=== PATIENT | male | born 1950 | race Caucasian/White ===

== ENCOUNTER → 2016-10-01 09:06 | Day surgery (SDC) | payer BC ==
--- NOTE | 2016-09-26 23:38 | HP ---
HISTORY AND PHYSICAL: DATE OF ADMISSION/OPERATION: 10/01/16 ADMITTING DIAGNOSES: 1. Gross hematuria. 2. Right renal calculi. PLANNED PROCEDURE: Right stent insertion and shock wave lithotripsy of right renal calculi. SURGEON: Dr. Suggs. ADMITTING HISTORY AND PHYSICAL: Arnold Valencia is a 65-year-old gentleman who was evaluated for a history of gross hematuria. He was noted to have a 1.5-cm calculus in the right kidney in the renal pelvis with additional renal calculi. PAST MEDICAL HISTORY: Significant for: 1. Hypertension. 2. Diabetes mellitus. 3. High cholesterol. 4. Chronic left lower extremity edema. PAST SURGICAL HISTORY: Significant for lower back surgery (details not available at the time of this dictation). MEDICATIONS: On admission: 1. Lipitor 40 mg daily. 2. Metformin 1000 mg b.i.d. 3. Zestoretic 12.5/20 one tablet daily. 4. Norvasc 5 mg daily. 5. Flomax 0.4 mg daily. 6. Valencia p.r.n. ALLERGIES: No known drug allergies. FAMILY HISTORY: Negative for stones. SMOKING HISTORY: He is a chronic smoker with a [id number] smoking history. PHYSICAL EXAMINATION GENERAL: Reveals a pleasant middle-aged gentleman. VITAL SIGNS: Blood pressure is 142/82, pulse 85 per minute, oxygen saturation 98% on room air, temperature 97.7. LUNGS: Clear bilaterally. CARDIOVASCULAR: Regular rate and rhythm. S1, S2. ABDOMEN: Soft without masses. There is mild right flank tenderness. IMPRESSION: A 65-year-old gentleman with a large calculus in the right ureteropelvic junction and additional right renal calculi. PLAN: Planned procedure is right stent insertion and shock wave lithotripsy of right renal calculi. I have discussed the procedure in detail with Mr. Valencia including possible risks of bleeding, infection, incomplete fragmentation, and possible injury to the kidney. He appears to understand and wishes to proceed as planned. CC: Dr. Schuler; Dr. Suggs* [id number]/[facility] #: [id number] [facility]
[~2016-10-01 09:06] MED LIST: Buffered Lidocaine 1% SYR 3ML* 3 ML/SYR SYRINGE INTRADERM ONE; Dexamethasone IV* 4 MG/ML 1 ML (4 MG) ONE; Famotidine IV* 10 MG/ML 2 ML (20 mg) IV ONE; Famotidine IV* 10 MG/ML 2 ML (20 mg) ONE; HYDROmorphone INJ* 1 MG/ML CARPUJECT SYRINGE IV PRN; Iohexol 180 (CONTRAST) 10 ML SDV IV ONE; KETAMINE HCL* 50 MG/ML 10 ML VIAL ONE; Ketorolac INJ* 30 MG/ML 1 ML VIAL ONE; Levalbuterol 0.63MG/3ML NEB INH PRN; Levalbuterol 1.25MG/0.5ML NEB ONE; Lidocaine 2% PF * 5 ML VIAL ONE; Metoclopramide TAB* 10 MG ONE; Metoclopramide TAB* 10 MG PO ONE; Midazolam* 1 MG/ML 5 ML VIAL (5 MG) ONE; Ondansetron INJ* 2 MG/ML VIAL IV PRN; Ondansetron INJ* 2 MG/ML VIAL ONE; Propofol* 10 MG/ML 20 ML BTL IV PUSH ONE; cefTRIAXone(*) 2 GM ADDV.VIAL IVPB ONE; fentaNYL* 50 MCG/ML 2 ML VIAL (100 MCG VIAL) IV PRN; fentaNYL* 50 MCG/ML 2 ML VIAL (100 MCG VIAL) ONE; oxyCODONE/Acetamin 5/325 MG* TAB PO PRN
--- NOTE | 2016-10-01 09:48 | RAD ---
Indication: Lithotripsy. Right renal calculus. Single view of the abdomen demonstrates multiple calcifications overlying the mid to lower pole of the right kidney. Likely calculi in the right renal pelvis measures up to 20 mm. IMPRESSION: Large calculi in the midportion of the right kidney with additional smaller calculi overlying the lower pole of the right kidney.
[2016-10-01 15:50] VITALS: BP 160/85
--- NOTE | 2016-10-01 17:14 | RAD ---
INDICATION: Postop status post right ureteral stent placement. COMPARISON: Comparison is made with a prior CT of the abdomen and pelvis from April 17, 2016 and a prior KUB series from October 01, 2016. TECHNIQUE: Frontal supine films of the abdomen were obtained. FINDINGS: The small bowel and colon appear nondistended. The patient is status post placement of a double-J stent catheter on the right side. There are multiple right renal calculi. The largest calculus measures 1.8 cm in diameter. IMPRESSION: MULTIPLE RIGHT RENAL CALCULI STATUS POST DOUBLE-J STENT CATHETER PLACEMENT
--- NOTE | 2016-10-02 07:50 | OP ---
DATE OF OPERATION: 10/01/16 [facility] DATE OF : 54 SURGEON: Sincere Suggs MD ANESTHESIOLOGIST: Dr. Hanna. ANESTHESIA: General. PRE-OP DIAGNOSIS: Right renal calculi. POST-OP DIAGNOSIS: Right renal calculi. OPERATIVE PROCEDURE: 1. Cystoscopy, right retrograde pyelogram, right stent insertion. 2. Shock wave lithotripsy of right renal calculus. INDICATIONS: Arnold Valencia is a 65-year-old gentleman who was evaluated and noted to have a fairly large 1.5-cm calculus in the right renal pelvis. In addition, he has smaller right renal calculi. Because of the large size of the calculus, I have explained to him that he may require multiple procedures before he can be rendered stone free and he is now being brought in for lithotripsy. I have also discussed the procedure of lithotripsy in detail including possible risks of bleeding, infection, incomplete fragmentation, and possible risk of injury to the kidney. COMPLICATIONS: None. STENT USED: 8-Latvian stent, right ureter. POSTOPERATIVE CONDITION: Stable. DESCRIPTION OF PROCEDURE: After induction of general anesthesia, the patient was placed in dorsal lithotomy position, sequential compression devices were in place and functioning. Initial cystoscopy revealed normal-appearing urethra, mild to moderately enlarged prostate. The bladder was examined. There were some small calcifications noted in the left lateral wall above the left orifice , but no evidence of any suspicious mucosal lesions noted. On the right side, a retrograde pyelogram was performed, which revealed a large filling defect in the renal pelvis with fullness of the collecting system and an 8-Latvian stent was positioned under fluoroscopy. Next, the patient was placed on the lithotripsy table in supine position. The large calculus in the right renal pelvis was identified on fluoroscopy and shock wave lithotripsy was commenced at a rate of 90 shocks per minute. Periodic imaging revealed good localization. A total of 300 shocks were administered and then temporary pause was instituted in an effort to minimize any potential trauma to the kidney. Lithotripsy was then resumed and a total of 2400 shocks were administered. The plan is to obtain an x-ray later on to assess for the degree of fragmentation and decide if any further procedures are needed. The patient tolerated the procedure satisfactorily and was transferred back to the recovery area in stable condition. [id number]/[facility] #: [id number] [facility]
== END | disposition home or self-care (01) ==
LOC: OR 09:06
PROVIDERS: ATTEND Urology
DX: N20.0 Calculus of kidney (principal); Z79.82 Long term (current) use of aspirin; I10 Essential (primary) hypertension; E11.9 Type 2 diabetes mellitus without complications; Z79.84 Long term (current) use of oral hypoglycemic drugs; R60.0 Localized edema; F17.210 Nicotine dependence, cigarettes, uncomplicated
CPT/HCPCS: 74000; A9270-GY; C1876; J0696; J1100; J1885; J2250; J2405; J2704; J3010

== ENCOUNTER 2016-11-12 07:13 | Day surgery (SDC) | payer BC ==
--- NOTE | 2016-10-25 08:06 | HP ---
ADMITTING HISTORY AND PHYSICAL: DATE OF ADMISSION: 11/12/16 ADMITTING DIAGNOSIS: Large multiple right renal calculi. PLANNED PROCEDURE: Shock wave lithotripsy, right renal calculi; possible right stent removal. SURGEON: Dr. Suggs. ADMITTING HISTORY AND PHYSICAL: Arnold Valencia is a 65-year-old gentleman, who had been evaluated and noted to have large multiple right-sided renal calculi. He had undergone right stent insertion and lithotripsy on 10/01/16 with partial fragmentation and is now being brought in for followup lithotripsy and possible stent removal. PAST MEDICAL HISTORY: Significant for: 1. Renal calculi. 2. Diabetes mellitus. 3. Hypertension. 4. High cholesterol. 5. Chronic left leg edema. MEDICATIONS ON ADMISSION: 1. Metformin 1000 mg b.i.d. 2. Lipitor 40 mg daily. 3. Norvasc 5 mg daily. 4. Flomax 0.4 mg daily. 5. Zestoretic 12.5/20 one tablet daily. ALLERGIES: No known drug allergies. PHYSICAL EXAMINATION GENERAL: Reveals a pleasant, overweight, middle-aged gentleman. VITAL SIGNS: Blood pressure is 150/92, pulse 89 per minute, oxygen saturation 96% on room air. LUNGS: Clear bilaterally. CARDIOVASCULAR: Regular rate and rhythm. S1 and S2. ABDOMEN: Soft with mild right flank tenderness. IMPRESSION AND PLAN: A 65-year-old gentleman with multiple large right renal calculi, who had undergone lithotripsy on October 01 with partial fragmentation and is now being brought in for shock wave lithotripsy, possible stent removal. CC: Dr. Schuler; Dr. Suggs* [id number]/[facility] #: [id number] [facility]
[~2016-11-12 07:13] MED LIST changes: -Buffered Lidocaine 1% SYR 3ML* 3 ML/SYR SYRINGE INTRADERM ONE; +Buffered Lidocaine 1% SYRIN* 3 ML/SYR SYRINGE INTRADERM ONE; -Dexamethasone IV* 4 MG/ML 1 ML (4 MG) ONE; -HYDROmorphone INJ* 1 MG/ML CARPUJECT SYRINGE IV PRN; -Iohexol 180 (CONTRAST) 10 ML SDV IV ONE; -KETAMINE HCL* 50 MG/ML 10 ML VIAL ONE; -Ketorolac INJ* 30 MG/ML 1 ML VIAL ONE; -Levalbuterol 0.63MG/3ML NEB INH PRN; -Levalbuterol 1.25MG/0.5ML NEB ONE; -Lidocaine 2% PF * 5 ML VIAL ONE; +Metoclopramide IV* 5 MG/ML 2 ML VIAL IV SLOW PU ONE; +Metoclopramide IV* 5 MG/ML 2 ML VIAL ONE; -Metoclopramide TAB* 10 MG ONE; -Metoclopramide TAB* 10 MG PO ONE; -Midazolam* 1 MG/ML 5 ML VIAL (5 MG) ONE; -Ondansetron INJ* 2 MG/ML VIAL IV PRN; -Ondansetron INJ* 2 MG/ML VIAL ONE; -Propofol* 10 MG/ML 20 ML BTL IV PUSH ONE; -fentaNYL* 50 MCG/ML 2 ML VIAL (100 MCG VIAL) IV PRN; -fentaNYL* 50 MCG/ML 2 ML VIAL (100 MCG VIAL) ONE; -oxyCODONE/Acetamin 5/325 MG* TAB PO PRN
--- NOTE | 2016-11-12 08:16 | RAD ---
HISTORY: Kidney stones, prior to lithotripsy COMPARISONS: October 01, 2016 VIEWS: Frontal views of the abdomen. FINDINGS: BOWEL: There is a nonspecific bowel gas pattern, with nondilated small bowel gas noted. CALCULI: There are multiple right renal calculi, measuring up to 1.1 cm in maximum dimension. A right ureteral stent is noted BONES AND SOFT TISSUES: Degenerative changes are noted OTHER FINDINGS: The lung bases are clear. There is no subphrenic gas. IMPRESSION: RIGHT NEPHROLITHIASIS WITH A RIGHT URETERAL STENT
[2016-11-12] MEDS ORDERED: Midazolam* 1 MG/ML 2 ML VIAL (2 MG) ONE (08:49)
[2016-11-12] MEDS ORDERED: fentaNYL* 50 MCG/ML 2 ML VIAL (100 MCG VIAL) ONE (08:49)
[2016-11-12] MEDS ORDERED: Furosemide IV* 10 MG/ML 2 ML VIAL (20 MG) ONE (09:37)
[2016-11-12] MEDS ORDERED: EPHEDrine (Pressors)* 50 MG/ML VIAL ONE (09:44)
[2016-11-12] MEDS ORDERED: Ondansetron INJ* 2 MG/ML VIAL ONE (09:47)
[2016-11-12] MEDS ORDERED: fentaNYL* 50 MCG/ML 2 ML VIAL (100 MCG VIAL) IV PRN (09:50)
[2016-11-12] MEDS ORDERED: DiMENhydriNATE IV* 50 MG/ML VIAL IV PUSH PRN (09:50)
[2016-11-12 11:01] VITALS: BP 115/63
--- NOTE | 2016-11-13 02:12 | OP ---
DATE OF OPERATION: 11/12/16 - [facility] DATE OF : [birth year] - AGE: 65 years, male. SURGEON: Sincere Suggs MD ANESTHESIOLOGIST: Dr. Munoz. ANESTHESIA: General. PRE-OP DIAGNOSIS: Right renal calculi. POST-OP DIAGNOSIS: Right renal calculi. OPERATIVE PROCEDURE: 1. Shockwave lithotripsy of right renal calculi. 2. Right stent removal. COMPLICATIONS: None. POSTOPERATIVE CONDITION: Stable. INDICATIONS: Arnold Valencia is a 65-year-old gentleman who had been evaluated for multiple large right right renal calculi. He had previously undergone stent insertion and lithotripsy with partial fragmentation and is now being brought in for followup lithotripsy. Because of the large size and number of the calculi, I have explained to him that he is at higher risk for need for multiple procedures including risk of obstructing ureteral fragments, which may require laser lithotripsy at a later date. DESCRIPTION OF THE PROCEDURE: After induction of general anesthesia, the patient was placed on the lithotripsy table in a supine position. There was a cluster of stones starting in the mid pole close to the proximal loop of the stent and extending down to the mid to lower pole area of the right kidney. Shockwave lithotripsy was commenced at a rate of 90 shocks per minute. After the initial 300 shocks, there was a pause in lithotripsy for several minutes in an effort to minimize any potential trauma to the kidney. There were several large stones and these were separately targeted sequentially with shockwaves and a total of 2400 shocks were used. Next, the patient was placed in dorsal lithotomy position. Cystoscopy was performed, the stent was seen exiting from the right ureter and was removed intact without difficulty. The bladder was emptied. The patient tolerated the procedure satisfactorily and was transferred back to the recovery area in stable condition. CC: Dr. Schuler; Dr. Suggs* [id number]/[facility] #: [id number] [facility]
== END 2016-11-12 11:24 | disposition home or self-care (01) ==
LOC: OR 07:13
PROVIDERS: ATTEND Urology
DX: N20.0 Calculus of kidney (principal); E11.8 Type 2 diabetes mellitus with unspecified complications; Z79.84 Long term (current) use of oral hypoglycemic drugs; I10 Essential (primary) hypertension; E78.00 Pure hypercholesterolemia, unspecified; R60.0 Localized edema
CPT/HCPCS: 74000; J0696; J1940; J2250; J2405; J3010

== ENCOUNTER 2017-01-10 17:38 | Inpatient (IN) | payer BC ==
[2017-01-10] MEDS ORDERED: Aspirin Low Dose CHEW TAB* 81 MG PO ONE (21:18)
[2017-01-10] MEDS ORDERED: NS 0.9% 1000 ML* 2,000 ML IV ONE (21:18)
[2017-01-10 21:31] LABS: Hematocrit 43 % (42-52); Hemoglobin 14.8 g/dl (14.0-18.0); Mean Corpuscular HGB Conc 35 g/dl (31-36); Mean Corpuscular Hemoglobin 30 pg (27-31); Mean Corpuscular Volume 88 fL (80-94); Mean Platelet Volume 9 um3 (7.4-10.4); Red Blood Count 4.88 10^6/ul (4.0-5.4); Red Cell Distribution Width 15 % (10.5-15); White Blood Count 15.3 10^3/ul (3.5-10.8)
[2017-01-10 21:44] LABS: Albumin 4.1 g/dL (3.2-5.2); BUN/Creatinine Ratio 33.3 (8-20); Calcium 12.2 mg/dL (8.6-10.3); EGFR African American 68.4 (>60); EGFR Non-African American 53.2 (>60); Globulin 3.1 g/dL (2-4); Phosphorus 2.8 mg/dL (2.5-5.0); Potassium 3.9 mmol/L (3.5-5.0); Total Bilirubin 0.6 mg/dL (0.2-1.0); Total Protein 7.2 g/dL (6.4-8.9)
[2017-01-10 21:47] LABS: Troponin I 1.31 ng/mL (<0.04)
[2017-01-10 21:57] LABS: Calcium (PTH Intact) 12.3 mg/dL (8.6-10.3); TSH (Thyroid Stimulating Horm) 4.42 mcIU/mL (0.34-5.60)
--- NOTE | 2017-01-10 22:12 | RAD ---
Indication: Chest pain. Single frontal view of the chest performed at 2200 hours was reviewed. No prior study is available. No mediastinal shift is noted. Heart is of normal size and configuration. Lung gilliam appear clear. IMPRESSION: NO ACTIVE CARDIOPULMONARY DISEASE IS NOTED.
--- NOTE | 2017-01-10 22:21 | HP ---
H&P (Free Text) History and Physical: PCP: Zuhair Schuler MD Date/Time of Evaluation: 01/10/2017 2220 CC: high calcium HPI: Mr Valencia is a 66YO obese male HX HTN, DM2, HLD, obesity, heavy smoking who began having severe non-radiating heartburn last Saturday, the , for which he was taking upwards of 15 TUMS/Rolaid daily which did relieve his symptoms. He was seen by his PCP who sanjuanita blood work finding his Ca++ to be 15 and recommended evaluation in [facility] [place] [place] ED. He did have a couple episodes of sweats, but denies SOB, palpitations, N/V, light-headedness, F/C, cough, congestion, or other issues. ED evaluation reveals his Ca++ to be down to 12, but his troponin is 1.3. ECG is benign. He is currently pain free & symptom free. PMedHx DM2 HTN HLD BPH OA Ambulatory Orders Tamsulosin CAP* [Flomax CAP*] 0.4 mg PO DAILY #30 cap 04/17/16 Amlodipine Besylate [Norvasc] 2.5 mg PO DAILY 09/24/16 Aspirin [Aspirin Adult Low Dose] 81 mg PO BEDTIME 09/24/16 Atorvastatin* [Lipitor*] 10 mg PO QPM 09/24/16 Glucosamine-Chondroitin [Glucosamine & Chondroitin 500-400 mg] 1 tab PO BID 01/05 Hydrocodone-Acetaminophen [Hydrocodone/Acetaminophen 10-325 mg] 2 - 4 tab PO Q6HR PRN 09/24/16 Ibuprofen TAB* [Motrin TAB* 800 MG] 800 mg PO Q6H PRN 09/24/16 Icosapent Ethyl [Vascepa] 2 gm PO BID 09/24/16 Lisinopril [Lisinopril 2.5 MG-] 2.5 mg PO DAILY 09/24/16 Metformin HCl [Glucophage] 1,000 mg PO BID 09/24/16 Multiple Vitamins W/ Minerals [Multivitamin Adults] 1 tab PO DAILY 09/24/16 Allergies No Known Allergies Allergy (Verified 11/12/16 07:42) SocHx: 1.5PPD cigarettes w/ ~50PYHX, no alcohol or recreational drugs; single, lives with girlfriend; full code status FamHx: positive for DM2, HTN, HLD ROS: as above, otherwise reviewed and all were negative Constitutional: NAD, normally developed, obese white male vitals: Vital Signs Temp 36.7 C 01/10/17 23:32 Pulse 75 01/10/17 23:32 Resp 20 01/10/17 23:32 BP 145/82 01/10/17 23:32 Pulse Ox 95 01/10/17 23:32 Intake & Output 01/10/17 01/10/17 01/11/17 11:59 23:59 11:59 Intake Total 1000 Balance 1000 Weight 109.225 kg Intake: IV Fluids 1000 HEENM: atraumatic; sclera/conjunctiva: non-icteric/mildly injected OU; hearing: clinically intact; oropharynx: clear, mucosa moist Neck: soft tissue: non-tender; thyroid: normal Pulmonary: diminished B w/ scant end-expiratory wheeze and prolonged expiratory phase, fair aeration, no accessory muscle use CV: RR/RR, normal S1S2, no carotid bruit, no jugular venous distention, 2+ B DP/ PT, no edema Abdominal: soft, non-distended, non-tender, no rebound/guarding/rigidity, normoactive bowel sounds, no hepatosplenomegaly or masses, no costovertebral angle tenderness Musculoskeletal: general: grossly intact; gait: stable Integumental: normal appearance and texture Psychiatric orientation: AA&O to PPS affect: calm mood: cooperative eye contact: good to fair content: reliable responses: timely insight: fair Testing: Lab Results 01/10/17 01/10/17 01/10/17 Range/Units 20:40 20:40 20:40 WBC 15.3 H (3.5-10.8) 10^3/ul RBC 4.88 (4.0-5.4) 10^6/ul Hgb 14.8 (14.0-18.0) g/dl Hct 43 (42-52) % MCV 88 (80-94) fL MCH 30 (27-31) pg MCHC 35 (31-36) g/dl RDW 15 (10.5-15) % Plt Count 270 (150-450) 10^3/ul MPV 9 (7.4-10.4) um3 Neut % (Auto) 68.3 (38-83) % Lymph % (Auto) 24.0 L (25-47) % Holt % (Auto) 7.2 (1-9) % Eos % (Auto) 0.2 (0-6) % Baso % (Auto) 0.3 (0-2) % Absolute Neuts (auto) 10.4 H (1.5-7.7) 10^3/ul Absolute Lymphs (auto) 3.7 (1.0-4.8) 10^3/ul Absolute Monos (auto) 1.1 H (0-0.8) 10^3/ul Absolute Eos (auto) 0 (0-0.6) 10^3/ul Absolute Basos (auto) 0.1 (0-0.2) 10^3/ul Absolute Nucleated RBC 0.01 10^3/ul Nucleated RBC % 0 INR (Anticoag Therapy) (0.89-1.11) Sodium 135 (133-145) mmol/L Potassium 3.9 (3.5-5.0) mmol/L Chloride 100 L (101-111) mmol/L Carbon Dioxide 27 (22-32) mmol/L Anion Gap 8 (2-11) mmol/L BUN 45 H (6-24) mg/dL Creatinine 1.35 H (0.67-1.17) mg/dL Est GFR ( Amer) 68.4 (>60) Est GFR (Non-Af Amer) 53.2 (>60) BUN/Creatinine Ratio 33.3 H (8-20) Glucose 114 H (70-100) mg/dL POC Glucose (mg/dL) (74-106) mg/dL Hemoglobin A1c (Less than 6.0) % Lactic Acid (0.5-2.0) mmol/L Calcium 12.2 H (8.6-10.3) mg/dL Phosphorus 2.8 (2.5-5.0) mg/dL Magnesium 1.0 L (1.9-2.7) mg/dL Total Bilirubin 0.60 (0.2-1.0) mg/dL AST 25 (13-39) U/L ALT 34 (7-52) U/L Alkaline Phosphatase 62 (34-104) U/L Total Creatine Kinase 77 (10-223) U/L CK-MB (CK-2) 6.7 H (0.6-6.3) ng/mL Troponin I 1.31 H* (<0.04) ng/mL B-Natriuretic Peptide ( - 100) pg/mL Total Protein 7.2 (6.4-8.9) g/dL Albumin 4.1 (3.2-5.2) g/dL Globulin 3.1 (2-4) g/dL Albumin/Globulin Ratio 1.3 (1-3) TSH 4.42 (0.34-5.60) mcIU/mL PTH Intact < 1.3 L (1.3-9.3) pmol/L Calcium (PTH Intact) 12.3 H (8.6-10.3) mg/dL 01/10/17 01/10/17 01/10/17 Range/Units 20:40 20:40 20:40 WBC (3.5-10.8) 10^3/ul RBC (4.0-5.4) 10^6/ul Hgb (14.0-18.0) g/dl Hct (42-52) % MCV (80-94) fL MCH (27-31) pg MCHC (31-36) g/dl RDW (10.5-15) % Plt Count (150-450) 10^3/ul MPV (7.4-10.4) um3 Neut % (Auto) (38-83) % Lymph % (Auto) (25-47) % Holt % (Auto) (1-9) % Eos % (Auto) (0-6) % Baso % (Auto) (0-2) % Absolute Neuts (auto) (1.5-7.7) 10^3/ul Absolute Lymphs (auto) (1.0-4.8) 10^3/ul Absolute Monos (auto) (0-0.8) 10^3/ul Absolute Eos (auto) (0-0.6) 10^3/ul Absolute Basos (auto) (0-0.2) 10^3/ul Absolute Nucleated RBC 10^3/ul Nucleated RBC % INR (Anticoag Therapy) 0.99 (0.89-1.11) Sodium (133-145) mmol/L Potassium (3.5-5.0) mmol/L Chloride (101-111) mmol/L Carbon Dioxide (22-32) mmol/L Anion Gap (2-11) mmol/L BUN (6-24) mg/dL Creatinine (0.67-1.17) mg/dL Est GFR ( Amer) (>60) Est GFR (Non-Af Amer) (>60) BUN/Creatinine Ratio (8-20) Glucose (70-100) mg/dL POC Glucose (mg/dL) (74-106) mg/dL Hemoglobin A1c (Less than 6.0) % Lactic Acid 1.8 (0.5-2.0) mmol/L Calcium (8.6-10.3) mg/dL Phosphorus (2.5-5.0) mg/dL Magnesium (1.9-2.7) mg/dL Total Bilirubin (0.2-1.0) mg/dL AST (13-39) U/L ALT (7-52) U/L Alkaline Phosphatase (34-104) U/L Total Creatine Kinase (10-223) U/L CK-MB (CK-2) (0.6-6.3) ng/mL Troponin I (<0.04) ng/mL B-Natriuretic Peptide 75 ( - 100) pg/mL Total Protein (6.4-8.9) g/dL Albumin (3.2-5.2) g/dL Globulin (2-4) g/dL Albumin/Globulin Ratio (1-3) TSH (0.34-5.60) mcIU/mL PTH Intact (1.3-9.3) pmol/L Calcium (PTH Intact) (8.6-10.3) mg/dL 01/10/17 01/10/17 01/11/17 Range/Units 20:40 23:27 00:15 WBC (3.5-10.8) 10^3/ul RBC (4.0-5.4) 10^6/ul Hgb (14.0-18.0) g/dl Hct (42-52) % MCV (80-94) fL MCH (27-31) pg MCHC (31-36) g/dl RDW (10.5-15) % Plt Count (150-450) 10^3/ul MPV (7.4-10.4) um3 Neut % (Auto) (38-83) % Lymph % (Auto) (25-47) % Holt % (Auto) (1-9) % Eos % (Auto) (0-6) % Baso % (Auto) (0-2) % Absolute Neuts (auto) (1.5-7.7) 10^3/ul Absolute Lymphs (auto) (1.0-4.8) 10^3/ul Absolute Monos (auto) (0-0.8) 10^3/ul Absolute Eos (auto) (0-0.6) 10^3/ul Absolute Basos (auto) (0-0.2) 10^3/ul Absolute Nucleated RBC 10^3/ul Nucleated RBC % INR (Anticoag Therapy) (0.89-1.11) Sodium (133-145) mmol/L Potassium (3.5-5.0) mmol/L Chloride (101-111) mmol/L Carbon Dioxide (22-32) mmol/L Anion Gap (2-11) mmol/L BUN (6-24) mg/dL Creatinine (0.67-1.17) mg/dL Est GFR ( Amer) (>60) Est GFR (Non-Af Amer) (>60) BUN/Creatinine Ratio (8-20) Glucose (70-100) mg/dL POC Glucose (mg/dL) 102 (74-106) mg/dL Hemoglobin A1c 6.9 H (Less than 6.0) % Lactic Acid (0.5-2.0) mmol/L Calcium (8.6-10.3) mg/dL Phosphorus (2.5-5.0) mg/dL Magnesium (1.9-2.7) mg/dL Total Bilirubin (0.2-1.0) mg/dL AST (13-39) U/L ALT (7-52) U/L Alkaline Phosphatase (34-104) U/L Total Creatine Kinase (10-223) U/L CK-MB (CK-2) (0.6-6.3) ng/mL Troponin I 1.72 H* (<0.04) ng/mL B-Natriuretic Peptide ( - 100) pg/mL Total Protein (6.4-8.9) g/dL Albumin (3.2-5.2) g/dL Globulin (2-4) g/dL Albumin/Globulin Ratio (1-3) TSH (0.34-5.60) mcIU/mL PTH Intact (1.3-9.3) pmol/L Calcium (PTH Intact) (8.6-10.3) mg/dL ECG, personally reviewed: NSR rate 86, no ischemia CXR, personally reviewed: IMPRESSION: NO ACTIVE CARDIOPULMONARY DISEASE IS NOTED. Impression: 66M presenting with subacute NSTEMI & hyperCalcemia 2nd accidental ingestion DIAGNOSIS & PLAN Primary NSTEMI : aspirin : metoprolol : supplemental oxygen : trend troponin : consider cardiology consult in AM : after arriving to floor, repeat troponin increased; start heparin GTT & repeat ECG : supportive care Secondary DM2 : A1c 6.9 : insulin carb ratio diet : basal/bolus/correctional insulin HTN : review meds once reconciled HLD : review meds once reconciled BPH : review meds once reconciled OA : review meds once reconciled Admission Rational: inpatient for subacute NSTEMI inappropriate for outpatient setting DVTp: heparin GTT Code Status: full
[2017-01-10] MEDS ORDERED: Albuterol 2.5 MG/3 ML NEB.SOL* (0.083%) INH PRN (22:25)
[2017-01-10] MEDS ORDERED: Acetaminophen TAB* 325 MG PO PRN (22:25)
[2017-01-10] MEDS ORDERED: CMCS: Melatonin (NF) 3 MG TAB PO PRN (22:26)
[2017-01-10] MEDS ORDERED: Nicotine Inhaler* 10 MG AMP INH PRN (22:26)
[2017-01-10] MEDS ORDERED: Ondansetron INJ* 2 MG/ML VIAL IV PRN (22:26)
[2017-01-10] MEDS ORDERED: Morphine INJ* 2 MG/ML 1 ML SYRINGE IV PRN (22:26)
[2017-01-10] MEDS ORDERED: traMADol TAB* 50 MG PO PRN (22:26)
--- NOTE | 2017-01-10 22:48 | ED ---
Rylan Berumen Thomas, scribed for Kristian Sage MD on 01/10/17 at 2038 . Complex/Multi-Sys Presentation - HPI Summary HPI Summary: The pt is a 66 y/o M referred to the ED from his PCP after a lab test showed that his Calcium was 15. The Calcium level was taken yesterday and the patient was contacted about his high Calcium this AM. He has not had an elevated calcium before. Additionally, the pt c/o CP, fatigue, weight loss, and L leg swelling. The patent's CP began 5 days ago and he "felt like he was having a heart attack". The patient reports that his pain was alleviated through Tums but would quickly return, and he took between 20 and 30 Tums since last Saturday. He claims that his CP was lessened in severity with mild exertion. He last had CP two days ago. The pt's L leg is swollen, sore, and red at night. His L leg soreness decreases at night. He states that this has been present for years.The patient denies palpitations, feeling hot or cold, abd pain. PMHx: kidney stones, DM, HLD. He denies FHx of CAD. The patient denies PMHx of CHF. The patient smokes 1.5 PPD. patient states that he stopped using alcohol 20 years ago. He has never had an GA, and he is not on home O2. 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 - History Of Current Complaint Chief Complaint: EDGeneral Hx Obtained From: Patient Onset/Duration: Sudden Onset - was informed of high Calcium level yesterday Alleviating Factor(s): Patient claims that Tums alleviated his CP Associated Signs And Symptoms: Positive: Chest Pain - began 5 days ago, resovled three days ago, Edema - L leg swelling, Other - POS: fatigue, weightloss, chronic shoulder pain, chronic knee pain; NEG: feeling hot or cold. Negative: Palpitations, Abdominal Pain - Allergies/Home Medications Allergies/Adverse Reactions: Allergies Allergy/AdvReac Type Severity Reaction Status Date / Time No Known Allergies Allergy Verified 11/12/16 07:42 PMH/Surg Hx/FS Hx/Imm Hx Previously Healthy: No Endocrine/Hematology History: Reports: Hx Diabetes - type II Cardiovascular History: Reports: Hx Hypertension - PT. 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 CYSTO, RIGHT LITHOTRIPSY, STENT INDERTION 09/2016 Hx Anesthesia Reactions: No Infectious Disease History: Denies: Traveled Outside the [place] in Last 30 Days - Family History Known Family History: Negative: Cardiac Disease, Hypertension, Diabetes - Social History Alcohol Use: None Hx Substance Use: No Substance Use Type: Reports: Prescribed Substance Use Comment - Amount & Last Used: FOR CHRONIC HIP PAIN, TAKES IN AM AND PM Hx Tobacco Use: Yes Smoking Status (MU): Heavy Every Day Tobacco Smoker Type: Cigarettes Amount Used/How Often: 1 PPD FOR 25 YRS Length of Time of Smoking/Using Tobacco: 25 YRS Have You Smoked in the Last Year: Yes Review of Systems Positive: Fatigue, Other - POS: weight loss, NEG: "feeling hot or cold" Positive: Chest Pain - began 5 days ago, resolved 3 days ago, pt claims that lessened in severity with Tums. Negative: Palpitations Negative: Abdominal Pain Positive: Arthralgia - chronic shoulder and knee pain, Edema - L leg, chronic All Other Systems Reviewed And Are Negative: Yes Physical Exam - Summary Physical Exam Summary: The patient is well-nourished in no acute distress and in no acute pain. The skin is warm and dry and skin color reflects adequate perfusion. Good skin turgor. HEENT: The head is normocephalic and atraumatic. The pupils are equal and reactive. The conjunctivae are clear and without drainage. Nares are patent and without drainage. Mouth reveals moist mucous membranes and the throat is without erythema and exudate. The external ears are intact. The ear canals are patent and without drainage. The tympanic membranes are intact. Neck is supple with full range of motion and non-tender. There are no carotid bruits. There is no neck vein distension. Thyroid is palpable and not enlarged. Respiratory: Chest is non-tender. Lungs show diffuse wheezing and rhonchi throughouth. Breath sounds are symmetrical and equal. Cardiovascular: Hear is regular rate and rhythm. There is no murmur or rub auscultated. There is no peripheral edema and pulses are symmetrical and equal. Good capillary refill Abdomen: The abdomen is obese, soft, and non-tender. There are normal bowel sounds heard in all four quadrants and there is no organomegaly palpated. Musculoskeletal: Motor weakness when the patient tries to sit up. There is no back pain noted. Extremities are non-tender with full range of motion. There is good capillary refill. There is no peripheral edema or calf tenderness elicited. Neurological: Patient is alert and oriented to person, place and time. The patient has symmetrical motor strength in all four extremities. Cranial nerves are grossly intact. Deep tendon reflexes are symmetrical and equal in all four extremities. Psychiatric: The patient has an appropriate affect and does not exhibit any anxiety or depression. Triage Information Reviewed: Yes Vital Signs On Initial Exam: Initial Vitals Temp Pulse Resp BP Pulse Ox 98.6 F 102 20 150/65 93 01/10/17 17:54 01/10/17 17:54 01/10/17 17:54 01/10/17 17:54 01/10/17 17:54 Vital Signs Reviewed: Yes Diagnostics - Vital Signs Vital Signs Temp Pulse Resp BP Pulse Ox 01/10/17 17:54 98.6 F 102 20 150/65 93 - Laboratory Lab Results: Lab Results 01/10/17 01/10/17 01/10/17 Range/Units 20:40 20:40 20:40 WBC 15.3 H (3.5-10.8) 10^3/ul RBC 4.88 (4.0-5.4) 10^6/ul Hgb 14.8 (14.0-18.0) g/dl Hct 43 (42-52) % MCV 88 (80-94) fL MCH 30 (27-31) pg MCHC 35 (31-36) g/dl RDW 15 (10.5-15) % Plt Count 270 (150-450) 10^3/ul MPV 9 (7.4-10.4) um3 Neut % (Auto) 68.3 (38-83) % Lymph % (Auto) 24.0 L (25-47) % [place] % (Auto) 7.2 (1-9) % Eos % (Auto) 0.2 (0-6) % Baso % (Auto) 0.3 (0-2) % Absolute Neuts (auto) 10.4 H (1.5-7.7) 10^3/ul Absolute Lymphs (auto) 3.7 (1.0-4.8) 10^3/ul Absolute Monos (auto) 1.1 H (0-0.8) 10^3/ul Absolute Eos (auto) 0 (0-0.6) 10^3/ul Absolute Basos (auto) 0.1 (0-0.2) 10^3/ul Absolute Nucleated RBC 0.01 10^3/ul Nucleated RBC % 0 INR (Anticoag Therapy) (0.89-1.11) Sodium 135 (133-145) mmol/L Potassium 3.9 (3.5-5.0) mmol/L Chloride 100 L (101-111) mmol/L Carbon Dioxide 27 (22-32) mmol/L Anion Gap 8 (2-11) mmol/L BUN 45 H (6-24) mg/dL Creatinine 1.35 H (0.67-1.17) mg/dL Est GFR ( Amer) 68.4 (>60) Est GFR (Non-Af Amer) 53.2 (>60) BUN/Creatinine Ratio 33.3 H (8-20) Glucose 114 H (70-100) mg/dL Lactic Acid (0.5-2.0) mmol/L Calcium 12.2 H (8.6-10.3) mg/dL Phosphorus 2.8 (2.5-5.0) mg/dL Magnesium 1.0 L (1.9-2.7) mg/dL Total Bilirubin 0.60 (0.2-1.0) mg/dL AST 25 (13-39) U/L ALT 34 (7-52) U/L Alkaline Phosphatase 62 (34-104) U/L Total Creatine Kinase 77 (10-223) U/L CK-MB (CK-2) Pending Troponin I 1.31 H* (<0.04) ng/mL B-Natriuretic Peptide ( - 100) pg/mL Total Protein 7.2 (6.4-8.9) g/dL Albumin 4.1 (3.2-5.2) g/dL Globulin 3.1 (2-4) g/dL Albumin/Globulin Ratio 1.3 (1-3) TSH 4.42 (0.34-5.60) mcIU/mL PTH Intact < 1.3 L (1.3-9.3) pmol/L Calcium (PTH Intact) 12.3 H (8.6-10.3) mg/dL 01/10/17 01/10/17 01/10/17 Range/Units 20:40 20:40 20:40 WBC (3.5-10.8) 10^3/ul RBC (4.0-5.4) 10^6/ul Hgb (14.0-18.0) g/dl Hct (42-52) % MCV (80-94) fL MCH (27-31) pg MCHC (31-36) g/dl RDW (10.5-15) % Plt Count (150-450) 10^3/ul MPV (7.4-10.4) um3 Neut % (Auto) (38-83) % Lymph % (Auto) (25-47) % Irion % (Auto) (1-9) % Eos % (Auto) (0-6) % Baso % (Auto) (0-2) % Absolute Neuts (auto) (1.5-7.7) 10^3/ul Absolute Lymphs (auto) (1.0-4.8) 10^3/ul Absolute Monos (auto) (0-0.8) 10^3/ul Absolute Eos (auto) (0-0.6) 10^3/ul Absolute Basos (auto) (0-0.2) 10^3/ul Absolute Nucleated RBC 10^3/ul Nucleated RBC % INR (Anticoag Therapy) 0.99 (0.89-1.11) Sodium (133-145) mmol/L Potassium (3.5-5.0) mmol/L Chloride (101-111) mmol/L Carbon Dioxide (22-32) mmol/L Anion Gap (2-11) mmol/L BUN (6-24) mg/dL Creatinine (0.67-1.17) mg/dL Est GFR ( Amer) (>60) Est GFR (Non-Af Amer) (>60) BUN/Creatinine Ratio (8-20) Glucose (70-100) mg/dL Lactic Acid 1.8 (0.5-2.0) mmol/L Calcium (8.6-10.3) mg/dL Phosphorus (2.5-5.0) mg/dL Magnesium (1.9-2.7) mg/dL Total Bilirubin (0.2-1.0) mg/dL AST (13-39) U/L ALT (7-52) U/L Alkaline Phosphatase (34-104) U/L Total Creatine Kinase (10-223) U/L CK-MB (CK-2) Troponin I (<0.04) ng/mL B-Natriuretic Peptide 75 ( - 100) pg/mL Total Protein (6.4-8.9) g/dL Albumin (3.2-5.2) g/dL Globulin (2-4) g/dL Albumin/Globulin Ratio (1-3) TSH (0.34-5.60) mcIU/mL PTH Intact (1.3-9.3) pmol/L Calcium (PTH Intact) (8.6-10.3) mg/dL Result Diagrams: 01/10/17 20:40 01/10/17 20:40 Lab Statement: Any lab studies that have been ordered have been reviewed, and results considered in the medical decision making process. - Radiology CXR Xray Interpretation: No Acute Changes - no active cardiopulmonary disease noted Radiology Interpretation Completed By: Radiologist - EKG 2119 Cardiac Rate: NL - 86 bpm EKG Rhythm: Sinus Rhythm EKG Interpretation: Normal axis, poor R wave progression, no evidence of GA Complex Multi-Symp Course/Dx Assessment/Plan: The pt is a 66 y/o M referred to the ED from his PCP after a lab test showed that his Calcium was 15. The Calcium level was taken yesterday and the patient was contacted about his high Calcium this AM. He has not had an elevated calcium before. Additionally, the pt c/o CP, fatigue, weight loss, and L leg swelling. The patent's CP began 5 days ago and he "felt like he was having a heart attack". The patient reports that his pain was alleviated through Tums but would quickly return, and he took between 20 and 30 Tums since last Saturday. He claims that his CP was lessened in severity with mild exertion. He last had CP two days ago. The pt's L leg is swollen, sore, and red at night. His L leg soreness decreases at night. He states that this has been present for years. The patient denies palpitations, feeling hot or cold, abd pain. PMHx: kidney stones, DM, HLD. He denies FHx of CAD. The patient denies PMHx of CHF. The patient smokes 1.5 PPD. patient states that he stopped using alcohol 20 years ago. He has never had an GA, and he is not on home O2. 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 CXR reveal no acute findings. EKG reveal no STEMI. Troponin is 1.31, BUN is 45, WBC is 15.3. Discussed care of pt with Dr. Chicas, who accepts pt for admission. He will be admitted with Dx of subacute NSTEMI, renal failure and hyperkalemia with 30 minutes of critical care time. He understands and agrees. - Diagnoses Provider Diagnoses: subacute NSTEMI, Renal failure, Hypercalcemia due to a drug Provider Diagnoses: (Ruled Out): Hyperkalemia - Physician Notifications Discussed Care Of Patient With: Jose Chicas Time Discussed With Above Provider: 22:30 Instructed by Provider To: Other - Accepts pt for admission. - Critical Care Time Critical Care Time: 30-74 min - 30 minutes Discharge - Discharge Plan Condition: Stable Disposition: ADMITTED TO [facility] Referrals: Neftaly Schuler MD [Primary Care Provider] - The documentation as recorded by the Rylan do Thomas accurately reflects the service I personally performed and the decisions made by , Kristian Sage MD.
[2017-01-10] MEDS: Insulin LISPRO* 1 UNITS UNIT SUBCUT SCH (23:33)
[2017-01-11] MEDS: NS 0.9% 1000 ML* 1,000 ML IV SCH ×3 (00:24→18:26)
[2017-01-11 00:50] LABS: Troponin I 1.72 ng/mL (<0.04)
[2017-01-11] MEDS: Mouth Piece, Nicotine* 1 EACH CARTRIDGE INH ONE ×2 (00:56→01:30)
[2017-01-11] MEDS: Metoprolol Tartrate TAB* 25 MG PO SCH ×2 (01:30→09:39)
[2017-01-11] MEDS: Heparin VIAL(*) 5000 UNITS/ML VIAL (FIVE THOUSAND) IV PRN ×3 (01:31→20:43)
[2017-01-11] MEDS: Heparin DRIP 25,000 UNITS(*) 25,000 UNITS/500 ML BAG IVPB SCH ×3 (01:31→22:15)
[2017-01-11] MEDS: Insulin LISPRO* 1 UNITS UNIT SUBCUT SCH ×6 (03:20→22:33)
[2017-01-11 04:04] LABS: Troponin I 1.41 ng/mL (<0.04)
[2017-01-11] MEDS ORDERED: Heparin VIAL(*) 5000 UNITS/ML VIAL (FIVE THOUSAND) SUBCUT SCH (06:00)
[2017-01-11] MEDS: Omeprazole CAP* 20 MG PO SCH (06:59)
[2017-01-11 07:02] LABS: Hematocrit 41 % (42-52); Hemoglobin 13.9 g/dl (14.0-18.0); Mean Corpuscular HGB Conc 34 g/dl (31-36); Mean Corpuscular Hemoglobin 30 pg (27-31); Mean Corpuscular Volume 89 fL (80-94); Mean Platelet Volume 8 um3 (7.4-10.4); Red Blood Count 4.59 10^6/ul (4.0-5.4); Red Cell Distribution Width 15 % (10.5-15)
[2017-01-11 07:17] LABS: BUN/Creatinine Ratio 35.1 (8-20); Calcium 10.3 mg/dL (8.6-10.3); EGFR African American 83.2 (>60); EGFR Non-African American 64.7 (>60); HDL Cholesterol 24.9 mg/dL; Potassium 3.6 mmol/L (3.5-5.0)
[2017-01-11] MEDS ORDERED: Perflutren Lipid Microsphere* 3 ML VIAL ONE (07:54)
[2017-01-11 08:43] LABS: Troponin I 1.71 ng/mL (<0.04)
--- NOTE | 2017-01-11 08:55 | ECHO ---
Patient: GIOVANNA CHACON [facility] Rec#: [id number] : 1950 Date: 01/11/2017 Age: 66y Height: 172.72 cm / 68.0 in Weight: 107.95 kg / 237.9 lbs Sex: M BSA: 2.2 Room#: [facility] Admit Date#: 01/10/2017 Type: Inpatient Referring: Jose Chicas MD Reading: Dean Hernandez MD Quarter Seamer: Farida Hamilton ANNETTA CC: Neftaly Schuler MD Transthoracic Echocardiogram Indication: NSTEMI BP: 115/60 HR: 76 Rhythm: NSR Findings History: DM,HTN,HLD,obesity,heavy smoker. Technical Comments: The study is technically limited due to patient body habitus. Completed at 0835. The study is technically limited due to the patient's smoking history. Left Ventricle: The left ventricular chamber size is normal. Mild to moderate concentric left ventricular hypertrophy is observed. There is normal left ventricular systolic function. The estimated ejection fraction is 60-65%. Abnormal left ventricular diastolic function is observed. Left Atrium: The left atrium is mildly dilated. Right Ventricle: The right ventricular cavity size is normal. The right ventricular global systolic function is normal. Right Atrium: The right atrial cavity size is normal. Aortic Valve: The aortic valve is trileaflet. There is no evidence of aortic regurgitation. There is no evidence of aortic stenosis. Mitral Valve: The mitral valve leaflets are mildly thickened. There is a trace of mitral regurgitation. Tricuspid Valve: The tricuspid valve leaflets are normal. There is no evidence of tricuspid valve regurgitation. Unable to estimate the right ventricular systolic pressure. There is no tricuspid stenosis. Pulmonic Valve: The pulmonic valve appears normal. There is no evidence of pulmonic regurgitation. There is no pulmonic stenosis. Pericardium: There is no significant pericardial effusion. A pericardial fat pad is visualized. Aorta: There is no dilatation of the ascending aorta. There is no dilatation of the aortic arch. There is no dilation of the aortic root. Pulmonary Artery: The main pulmonary artery is not well visualized. Venous: The inferior vena cava is dilated. There is a greater than 50% respiratory change in the inferior vena cava dimension. Contrast: Definity was used to optimize study. A total of 3ml was used. Intravenous contrast was used to enhance endocardial border definition. Conclusions There is normal left ventricular systolic function. The estimated ejection fraction is 60-65%. Mild to moderate concentric left ventricular hypertrophy is observed. The left ventricular chamber size is normal. Abnormal left ventricular diastolic function is observed. The left atrium is mildly dilated. Functionally benign heart valves. There is no prior echocardiogram available to compare with at this time. Measurements Name Value Normal Range RVIDd (AP) 2D 3.1 cm (0.9 - 2.6) RVDdMajor (2D) 4.1 cm (2.2 - 4.4) RAd ISD 4CH 4.9 cm (3.4 - 4.9) RA (A4C)W 4 cm (2.9 - 4.6) IVSd (2D) 1.4 cm (0.6 - 1) LVPWd (2D) 1.4 cm (0.6 - 1) LVIDd (2D) 4.2 cm (3.6 - 5.4) LVIDs (2D) 3 cm - LV FS (2D) 29 % (25 - 45) Aortic Annulus 2.4 cm (1.4 - 2.6) Ao root diameter (2D) 3.5 cm (2.1 - 3.5) Ascending Ao 3.3 cm (2.1 - 3.4) Aortic arch 2.7 cm (1.8 - 3.4) Descending Ao 0.6 cm - LA dimension (AP) 2D 4 cm (2.3 - 3.8) LAd ISD 4CH 5.8 cm (2.9 - 5.3) LA ISD 4CH W 3.7 cm (2.5 - 4.5) Name Value Normal Range LA ESV SP 4CH (A/L) 75 ml - LA ESV SP 2CH (A/L) 39 ml - LA ESV BP (A/L) 54 ml - LA ESV BP (A/L) index 24.7 ml/m2 - LA ESV SP 4CH (MOD) 71 ml - LA ESV SP 2CH (MOD) 37 ml - Name Value Normal Range MV E-wave Vmax 0.7 m/sec - MV deceleration time 171 msec - MV A-wave Vmax 0.57 m/sec - MV E:A ratio 1.19 ratio - LV septal e' Vmax 0.07 m/sec - LV lateral e' Vmax 0.1 m/sec - LV E:e' septal ratio 10 ratio - LV E:e' lateral ratio 7 ratio - Name Value Normal Range AV Vmax 1 m/sec - AV VTI 20.8 cm - AV peak gradient 4.09 mmHg - AV mean gradient 2.46 mmHg - LVOT Vmax 0.8 m/sec - LVOT VTI 15.3 cm - LVOT peak gradient 2.53 mmHg - LVOT mean gradient 1.15 mmHg - Name Value Normal Range IVC diameter 2.2 cm - Name Value Normal Range PV Vmax 0.8 m/sec - PV peak gradient 2.25 mmHg -
[2017-01-11] MEDS: Aspirin EC Low Dose* 81 MG TAB.EC PO SCH (09:40)
[2017-01-11] MEDS: Docusate CAP* 100 MG PO SCH ×2 (09:40→20:44)
--- NOTE | 2017-01-11 16:11 | PN ---
Subjective Date of Service: 01/11/17 Interval History: No chest pain, SOB, cough since admission. No new c/o. Objective Active Medications: Acetaminophen (Tylenol Tab*) 650 mg PO Q6H PRN PRN Reason: FEVER/PAIN Albuterol (Ventolin 2.5 Mg/3 Ml Neb.Isabella*) 2.5 mg INH Q2H PRN PRN Reason: SOB/WHEEZING Aspirin (Aspirin Ec Low Dose*) 81 mg PO DAILY [facility] Last Admin: 01/11/17 09:40 Dose: 81 mg Docusate Sodium (Colace Cap*) 200 mg PO BID [facility] Last Admin: 01/11/17 09:40 Dose: 200 mg Heparin Sodium (Porcine) (Heparin Vial(*)) 0 units IV .FOR BOLUSES PRN PRN Reason: HEPARIN DRIP BOLUSES Last Admin: 01/11/17 10:53 Dose: 3,300 units Sodium Chloride (Ns 0.9% 1000 Ml*) 1,000 mls @ 100 mls/hr IV PER RATE [facility] Last Admin: 01/11/17 10:56 Dose: 100 mls/hr Heparin Sodium/Dextrose (Heparin Drip 25,000 Units(*)) 25,000 units in 500 mls @ 0 mls/hr IVPB .(INITIAL RATE) [facility]; Per Protocol PRN Reason: Protocol Last Admin: 01/11/17 10:53 Dose: 23 mls/hr Insulin Glargine (Lantus(*)) 26 units SUBCUT 2100 [facility] Insulin Human Lispro (Humalog*) 0 units SUBCUT Q4H [facility] PRN Reason: Protocol Last Admin: 01/11/17 14:43 Dose: 3 units Metoprolol Tartrate (Lopressor Tab*) 25 mg PO BID [facility] Last Admin: 01/11/17 09:39 Dose: 25 mg Morphine Sulfate (Morphine Inj (Syringe)*) 2 mg IV Q4H PRN PRN Reason: PAIN - MILD Nicotine (Nicotine Inhaler*) 10 mg INH Q2H PRN PRN Reason: CRAVING Omeprazole (Prilosec Cap*) 20 mg PO DAILY@0600 [facility] Last Admin: 01/11/17 06:59 Dose: Not Given Ondansetron HCl (Zofran Inj*) 4 mg IV Q6H PRN PRN Reason: NAUSEA Tramadol HCl (Ultram*) 50 mg PO Q6H PRN PRN Reason: PAIN Vital Signs 01/10/17 01/10/17 01/10/17 22:27 22:31 22:49 Temperature 98 F Pulse Rate 76 82 82 Respiratory 16 19 16 Rate Blood Pressure 114/42 148/70 148/70 (mmHg) O2 Sat by Pulse 93 91 Oximetry 01/10/17 01/11/17 01/11/17 23:32 01:31 04:23 Temperature 98.0 F 98.4 F Pulse Rate 75 79 67 Respiratory 20 20 Rate Blood Pressure 145/82 139/45 115/60 (mmHg) O2 Sat by Pulse 95 90 Oximetry 01/11/17 01/11/17 01/11/17 08:20 11:34 15:08 Temperature 97.5 F 98.2 F 97.6 F Pulse Rate 69 65 65 Respiratory 16 18 20 Rate Blood Pressure 122/75 123/67 113/57 (mmHg) O2 Sat by Pulse 95 96 93 Oximetry Oxygen Devices in Use Now: Nasal Cannula Appearance: Alert, supine in bed. In good spirits. Looks comfortable. Eyes: No Scleral Icterus Neck: NL Appearance and Movements; NL JVP, No Thyroid Enlargement, Masses Respiratory: Symmetrical Chest Expansion and Respiratory Effort, Clear to Percussion - mild to mod wheezing all lung gilliam Cardiovascular: NL Sounds; No Murmurs; No JVD, RRR, No Edema, - Extremities: No Edema, No Clubbing, Cyanosis, - Skin: No Rash or Ulcers, No Nodules or Sclerosis, - Neurological: Alert and Oriented x 3, NL Sensation Result Diagrams: 01/11/17 06:30 01/11/17 06:33 Additional Lab and Data: Lab Results 01/10/17 01/10/17 01/10/17 Range/Units 20:40 20:40 20:40 WBC 15.3 H (3.5-10.8) 10^3/ul RBC 4.88 (4.0-5.4) 10^6/ul Hgb 14.8 (14.0-18.0) g/dl Hct 43 (42-52) % MCV 88 (80-94) fL MCH 30 (27-31) pg MCHC 35 (31-36) g/dl RDW 15 (10.5-15) % Plt Count 270 (150-450) 10^3/ul MPV 9 (7.4-10.4) um3 Neut % (Auto) 68.3 (38-83) % Lymph % (Auto) 24.0 L (25-47) % [place] % (Auto) 7.2 (1-9) % Eos % (Auto) 0.2 (0-6) % Baso % (Auto) 0.3 (0-2) % Absolute Neuts (auto) 10.4 H (1.5-7.7) 10^3/ul Absolute Lymphs (auto) 3.7 (1.0-4.8) 10^3/ul Absolute Monos (auto) 1.1 H (0-0.8) 10^3/ul Absolute Eos (auto) 0 (0-0.6) 10^3/ul Absolute Basos (auto) 0.1 (0-0.2) 10^3/ul Absolute Nucleated RBC 0.01 10^3/ul Nucleated RBC % 0 INR (Anticoag Therapy) (0.89-1.11) Sodium 135 (133-145) mmol/L Potassium 3.9 (3.5-5.0) mmol/L Chloride 100 L (101-111) mmol/L Carbon Dioxide 27 (22-32) mmol/L Anion Gap 8 (2-11) mmol/L BUN 45 H (6-24) mg/dL Creatinine 1.35 H (0.67-1.17) mg/dL Est GFR ( Amer) 68.4 (>60) Est GFR (Non-Af Amer) 53.2 (>60) BUN/Creatinine Ratio 33.3 H (8-20) Glucose 114 H (70-100) mg/dL Lactic Acid (0.5-2.0) mmol/L Calcium 12.2 H (8.6-10.3) mg/dL Phosphorus 2.8 (2.5-5.0) mg/dL Magnesium 1.0 L (1.9-2.7) mg/dL Total Bilirubin 0.60 (0.2-1.0) mg/dL AST 25 (13-39) U/L ALT 34 (7-52) U/L Alkaline Phosphatase 62 (34-104) U/L Total Creatine Kinase 77 (10-223) U/L CK-MB (CK-2) Pending Troponin I 1.31 H* (<0.04) ng/mL B-Natriuretic Peptide ( - 100) pg/mL Total Protein 7.2 (6.4-8.9) g/dL Albumin 4.1 (3.2-5.2) g/dL Globulin 3.1 (2-4) g/dL Albumin/Globulin Ratio 1.3 (1-3) TSH 4.42 (0.34-5.60) mcIU/mL PTH Intact < 1.3 L (1.3-9.3) pmol/L Calcium (PTH Intact) 12.3 H (8.6-10.3) mg/dL 01/10/17 01/10/17 01/10/17 Range/Units 20:40 20:40 20:40 WBC (3.5-10.8) 10^3/ul RBC (4.0-5.4) 10^6/ul Hgb (14.0-18.0) g/dl Hct (42-52) % MCV (80-94) fL MCH (27-31) pg MCHC (31-36) g/dl RDW (10.5-15) % Plt Count (150-450) 10^3/ul MPV (7.4-10.4) um3 Neut % (Auto) (38-83) % Lymph % (Auto) (25-47) % [place] % (Auto) (1-9) % Eos % (Auto) (0-6) % Baso % (Auto) (0-2) % Absolute Neuts (auto) (1.5-7.7) 10^3/ul Absolute Lymphs (auto) (1.0-4.8) 10^3/ul Absolute Monos (auto) (0-0.8) 10^3/ul Absolute Eos (auto) (0-0.6) 10^3/ul Absolute Basos (auto) (0-0.2) 10^3/ul Absolute Nucleated RBC 10^3/ul Nucleated RBC % INR (Anticoag Therapy) 0.99 (0.89-1.11) Sodium (133-145) mmol/L Potassium (3.5-5.0) mmol/L Chloride (101-111) mmol/L Carbon Dioxide (22-32) mmol/L Anion Gap (2-11) mmol/L BUN (6-24) mg/dL Creatinine (0.67-1.17) mg/dL Est GFR ( Amer) (>60) Est GFR (Non-Af Amer) (>60) BUN/Creatinine Ratio (8-20) Glucose (70-100) mg/dL Lactic Acid 1.8 (0.5-2.0) mmol/L Calcium (8.6-10.3) mg/dL Phosphorus (2.5-5.0) mg/dL Magnesium (1.9-2.7) mg/dL Total Bilirubin (0.2-1.0) mg/dL AST (13-39) U/L ALT (7-52) U/L Alkaline Phosphatase (34-104) U/L Total Creatine Kinase (10-223) U/L CK-MB (CK-2) Troponin I (<0.04) ng/mL B-Natriuretic Peptide 75 ( - 100) pg/mL Total Protein (6.4-8.9) g/dL Albumin (3.2-5.2) g/dL Globulin (2-4) g/dL Albumin/Globulin Ratio (1-3) TSH (0.34-5.60) mcIU/mL PTH Intact (1.3-9.3) pmol/L Calcium (PTH Intact) (8.6-10.3) mg/dL Assess/Plan/Problems-Billing Assessment: - Patient Problems (1) Elevated troponin Current Visit: Yes Status: Acute Code(s): R74.8 - ABNORMAL LEVELS OF OTHER SERUM ENZYMES SNOMED Code(s): 693312880 Comment: No injury seen on echo. CK MB minimally elevated. ECG no definite sign ischemia and/or infarction. Discussed with Dr. Rodriguez. Plan US legs, D- dimer, repeat labs in AM. Consider cardiac cath in near future if diagnosis still in doubt. Cannot do chemical stress test while he is wheezing. Start atorvastatin 80 mg q 1700 hrs 01/11. (2) Hypercalcemia Current Visit: Yes Status: Acute Code(s): E83.52 - HYPERCALCEMIA SNOMED Code(s): 75871802 Comment: Resolved, due to overus of Tums. (3) Tobacco abuse Current Visit: Yes Status: Acute Code(s): Z72.0 - TOBACCO USE SNOMED Code( s): 441968695 Comment: Pt advised to quit smoking and avoid second hand smoke. (4) Diabetes Current Visit: Yes Status: Acute Code(s): E11.9 - TYPE 2 DIABETES MELLITUS WITHOUT COMPLICATIONS SNOMED Code(s): 23281686 Comment: Metformin on hold. (5) HTN (hypertension) Current Visit: Yes Status: Acute Code(s): I10 - ESSENTIAL (PRIMARY) HYPERTENSION SNOMED Code(s): 79779377 Comment: Lisinopril on hold. (6) BPH (benign prostatic hyperplasia) Current Visit: Yes Status: Acute Code(s): N40.0 - BENIGN PROSTATIC HYPERPLASIA WITHOUT LOWER URINRY TRACT SYMP SNOMED Code(s): 262537639 Comment: Continue tamsulosin.
--- NOTE | 2017-01-11 16:52 | RAD ---
INDICATION: Pain and swelling. COMPARISON: September 06, 2010 TECHNIQUE: Duplex interrogation of the both lower extremities were performed. FINDINGS: Deep veins: The common femoral, great saphenous, profunda femoris, proximal, mid, and distal deep femoral, popliteal, posterior tibial, and peroneal veins are patent bilaterally. There is normal compressibility, augmentation, and phasic flow bilaterally. Superficial veins: There are no findings of superficial thrombophlebitis of either leg. Popliteal fossa: There is a 2.8 x 2.0 x 1.9 cm right-sided popliteal cyst. There is a left-sided popliteal cyst.. Soft tissues:There are no soft tissue abnormalities of either leg. IMPRESSION: No evidence of deep venous thrombosis of either leg. Right-sided popliteal cyst.
[2017-01-11] MEDS ORDERED: Atorvastatin* 80 MG TAB PO SCH (17:00)
--- NOTE | 2017-01-11 18:38 | CONS ---
CC: Dr. Neftaly Schuler * CARDIOLOGY CONSULTATION: DATE OF CONSULT: 01/11/2017 REASON FOR THE CONSULT: Abnormal troponin level with a remote history of chest discomfort, assess for possibility of cardiac etiology. HISTORY OF PRESENT ILLNESS: The patient is a 66-year-old gentleman with no prior known cardiac history. Specifically, he denies any history of myocardial infarction, congestive heart failure, or significant heart rhythm disturbance. He was in his usual state of health and last Saturday morning at 3 in the morning while he was lying on his left side, he started having a hurting, burning sensation like an ice pick in the right side of his chest. It would come and go, gets somewhat better, but never was completely relieved. This occurred all day long on Saturday. At 3 in the morning when he had it, he went back to sleep for an hour and woke up, it was still there, at 5:30 he did have it. He would pace around the house and he actually felt that pacing around the house made it feel better. He then laid back again on his right side and woke up and again had the symptoms. He also stated that he had sweating, but denied significant shortness of breath.Saturday, he continued having the symptoms and it would come and go. Specifically, it was not related to him doing any type of exertional activity, although he admits he does not do exertional activity. On Saturday, he went to where he worked and he told the woman who was there of the symptoms he was having as it was still present and she ran out and got aspirin and Tums. She had him chew a baby aspirin, but also took Tums and within 5 minutes he felt relief. It would come back again a couple of hours later and he would take Tums and it would get relieved again. This went on and off during Saturday. By Saturday, however, he did not notice any further episodes of this type of symptom. On Saturday around 5:15 a.m., he got up, went to the bathroom, he started coughing and leaned over to spit in the garbage can and he ended up throwing up a significant amount. All day Saturday, he felt lightheaded and dizzy. He did not go to work, but he had no further symptoms. At 12:30 p.m., he went to Dr. Schuler's office and blood tests were drawn. On , he did go to work and was feeling mildly dizzy with may be some shortness of breath and he got a phone call from Dr. Schuler's office and was instructed to go immediately to the hospital. He presented to [facility] yesterday. Reportedly, the patient was told by Dr. Schuler that his calcium level was 15, which is why he wanted him to go immediately to the hospital. Yesterday, on , his calcium level was found to be 12.2. His BUN and creatinine were 45 and 1.35. His initial troponin was 1.31. His total CPK was 77 and with an MB of 6.1. His SGOT was 25. His magnesium was 1.0. His B natriuretic peptide was 75. During the course of the hospitalization since then, repeat troponin went from 1.3 to 1.72, then to 1.41, then to 1.71. Of note, no other total CPKs or MBs were drawn and consult was called. Prior to my seeing him, I asked them to add on total CPKs and MBs to all of the abnormal troponins. Those total CPKs during the hospital course went from 77 to 76 to 65 to 63, all normal range. The MBs went from 6.7 to 7.6 to 6.2 and 6.1. Today, his BUN and creatinine were improved at 40 and 1.1 and his calcium was 10.3. His magnesium was not drawn today. His EKG from the emergency room, dated 01/10/17, time 2120 hours revealed a indeterminate axis, there was R greater than S in V1 suggesting the possibility of right ventricular hypertrophy. There was no reported acute ST or T-wave changes. Repeat EKG from 01/11/17, revealed similar findings. PAST MEDICAL HISTORY: Includes, a 20-year at least history of diabetes, 20- year history of hypertension, hyperlipidemia. He also has benign prostatic hypertrophy and osteoarthritis. CARDIAC RISK FACTORS: include hypertension, hyperlipidemia and diabetes in addition to a 1-1/2 pack a day smoking history for at least 30 years, obesity, sedentary lifestyle. HOME MEDICATIONS: Home medications were not documented for accuracy at this point in time, his pharmacy is [facility]. ALLERGIES: No known allergies. REVIEW OF SYSTEMS: As per the H and P. He does admits that he cannot walk well at all due to osteoarthritis. He does have shortness of breath at times but has never been diagnosed with asthma or COPD, but has a significant smoking history. He denies any known GI pathology.He denies any history of prior stroke or TIA. PHYSICAL EXAMINATION: When I see him reveals an obese gentleman in no acute distress. Neck is supple. There is no obvious increased JVP. Carotids with fair upstroke and volume. I cannot appreciate definitive transmitted murmur or bruits. Conjunctivae are pink. Sclerae clear. Mouth reveals moist mucosa. Lungs reveal no accessory muscle usage. There is diffuse wheeze noted throughout all lung gilliam. No active rhonchi noted. No active bowels. Heart reveals no visible heaves. No palpable heaves or thrills. Heart sounds are quite distant in nature. I do not appreciate significant systolic or diastolic murmur. However, I believe due to the increased chest size it is difficult in general to hear. Abdomen is obese, soft, nontender. I cannot assess accurately for organomegaly. Extremities are heavy in nature bilaterally, with mild-to- moderate non-pitting edema. Neuro: The patient alert, oriented with normal mentation. Musculoskeletal: The patient moves all extremities appropriate. Psychological: The patient with normal affect. LABORATORY DATA: Laboratory results today - as discussed above CBC findings revealed an initial white count of 15,000 with hemoglobin and hematocrit of 14.8 and 43. On repeat, white count 10,000; hemoglobin and hematocrit of 13.9 and 41, platelet count of 212. The current PTT is 45 as the patient was reportedly placed on heparin by the hospitalist. OVERALL ASSESSMENT: Arnold now presents with a very atypical story dating back, last Saturday with no recurrence of his chest discomforts over the past at least 3 days. The abnormality that we are now facing is a elevated troponin that is not in an up and down pattern, but in a fairly flat pattern and inconsistent in nature (1.3, 1.7, 1.4, 1.7). He has no elevation to his total CPK and his SGOT is not elevated as well. The EKG is nonspecific, but raises the question of right-sided findings or posterior infarct with the R-wave. At this point in time, he has already eating lunch when I see him at approximately 2:30 in the afternoon. I would clearly not take him emergently to the cardiovascular laboratory at this time given the fact that he just recently ate. I will discuss with the hospitalist to consideration of either doing a regadenoson stress test versus a definitive cardiac catheterization to look for the potential for underlying coronary artery disease. It would be ideal to know if there were other blood tests drawn by Dr. Schuler from a description of chest discomfort when he went to see him on Saturday, such that was a troponin drawn at that time too, but Dr. Schuler's office is not responding to our phone calls currently. Of note, there was some comment made in reviewing the emergency room physician's note about left lower extremity swelling over the course of past week or so, but I see no mention of the D-dimer or any consideration for whether or not the right-sided chest discomfort could have been related to a pulmonary embolus. His chest x-ray currently does not describe any infiltrative pattern that we might assume would occur if he did have a pulmonary embolism within for it. I will discuss all these possibilities with the hospitalist, who today involved with him is Dr. Jose Elizondo. [id number]/[facility] #: [id number] MEMO
[2017-01-11] MEDS: Insulin GLARGINE(*) 1 UNITS UNIT SUBCUT SCH (20:44)
[2017-01-11] MEDS: Tamsulosin CAP* 0.4 MG PO SCH (20:44)
[2017-01-12] MEDS: NS 0.9% 1000 ML* 1,000 ML IV SCH (00:15)
[2017-01-12] MEDS: Insulin LISPRO* 1 UNITS UNIT SUBCUT SCH ×5 (04:10→22:05)
[2017-01-12] MEDS: Omeprazole CAP* 20 MG PO SCH (06:42)
[2017-01-12] MEDS: Docusate CAP* 100 MG PO SCH ×2 (08:24→22:03)
[2017-01-12] MEDS: Aspirin EC Low Dose* 81 MG TAB.EC PO SCH (08:32)
[2017-01-12] MEDS ORDERED: Diltiazem CD CAP* 120 MG PO SCH (11:00)
[2017-01-12] MEDS: Enoxaparin(*) 100 MG/ML SYR SUBCUT SCH ×2 (11:10→22:07)
[2017-01-12 12:19] LABS: Troponin I 1.04 ng/mL (<0.04)
--- NOTE | 2017-01-12 14:53 | PN ---
Subjective Date of Service: 01/12/17 Interval History: No chest pain, cough, SOB. No new c/o. Objective Active Medications: Acetaminophen (Tylenol Tab*) 650 mg PO Q6H PRN PRN Reason: FEVER/PAIN Albuterol (Ventolin 2.5 Mg/3 Ml Neb.Isabella*) 2.5 mg INH Q2H PRN PRN Reason: SOB/WHEEZING Aspirin (Aspirin Ec Low Dose*) 81 mg PO DAILY [facility] Last Admin: 01/12/17 08:32 Dose: 81 mg Atorvastatin Calcium (Lipitor*) 20 mg PO 1700 [facility] Docusate Sodium (Colace Cap*) 200 mg PO BID [facility] Last Admin: 01/12/17 08:24 Dose: Not Given Enoxaparin Sodium (Lovenox(*)) 100 mg SUBCUT Q12H [facility] Stop: 01/13/17 23:30 Last Admin: 01/12/17 11:10 Dose: 100 mg Insulin Glargine (Lantus(*)) 26 units SUBCUT 2100 [facility] Last Admin: 01/11/17 20:44 Dose: 26 unit Insulin Human Lispro (Humalog*) 0 units SUBCUT ACHS [facility] PRN Reason: Protocol Last Admin: 01/12/17 11:10 Dose: 3 units Morphine Sulfate (Morphine Inj (Syringe)*) 2 mg IV Q4H PRN PRN Reason: PAIN - MILD Nicotine (Nicotine Inhaler*) 10 mg INH Q2H PRN PRN Reason: CRAVING Omeprazole (Prilosec Cap*) 20 mg PO DAILY@0600 [facility] Last Admin: 01/12/17 06:42 Dose: 20 mg Ondansetron HCl (Zofran Inj*) 4 mg IV Q6H PRN PRN Reason: NAUSEA Tamsulosin HCl (Flomax Cap*) 0.4 mg PO BEDTIME [facility] Last Admin: 01/11/17 20:44 Dose: 0.4 mg Tramadol HCl (Ultram*) 50 mg PO Q6H PRN PRN Reason: PAIN Vital Signs 01/11/17 01/11/17 01/11/17 15:08 19:50 20:00 Temperature 97.6 F 98.2 F Pulse Rate 65 75 Respiratory 20 24 20 Rate Blood Pressure 113/57 125/70 (mmHg) O2 Sat by Pulse 93 94 Oximetry 01/11/17 01/12/17 01/12/17 23:32 00:46 04:00 Temperature 97.9 F Pulse Rate 71 Respiratory 20 20 Rate Blood Pressure 134/50 130/69 (mmHg) O2 Sat by Pulse 93 92 Oximetry 01/12/17 01/12/17 01/12/17 04:05 07:25 08:00 Temperature 97.7 F 97.4 F Pulse Rate 65 66 Respiratory 16 20 16 Rate Blood Pressure 96/52 114/77 (mmHg) O2 Sat by Pulse 90 94 Oximetry 01/12/17 01/12/17 01/12/17 08:43 08:44 11:10 Temperature 98.0 F Pulse Rate 66 69 Respiratory 19 24 Rate Blood Pressure 127/67 (mmHg) O2 Sat by Pulse 94 94 94 Oximetry Oxygen Devices in Use Now: None Appearance: Alert, in a chair. In good spirits. Looks comfortable. Eyes: No Scleral Icterus Respiratory: Symmetrical Chest Expansion and Respiratory Effort, Clear to Auscultation, Clear to Percussion Cardiovascular: NL Sounds; No Murmurs; No JVD, RRR, No Edema, - Extremities: No Edema, No Clubbing, Cyanosis, - Skin: No Rash or Ulcers, No Nodules or Sclerosis, - Neurological: Alert and Oriented x 3, NL Sensation Result Diagrams: 01/11/17 06:30 01/11/17 06:33 Additional Lab and Data: Lab Results 01/10/17 01/10/17 01/10/17 Range/Units 20:40 20:40 20:40 WBC 15.3 H (3.5-10.8) 10^3/ul RBC 4.88 (4.0-5.4) 10^6/ul Hgb 14.8 (14.0-18.0) g/dl Hct 43 (42-52) % MCV 88 (80-94) fL MCH 30 (27-31) pg MCHC 35 (31-36) g/dl RDW 15 (10.5-15) % Plt Count 270 (150-450) 10^3/ul MPV 9 (7.4-10.4) um3 Neut % (Auto) 68.3 (38-83) % Lymph % (Auto) 24.0 L (25-47) % [place] % (Auto) 7.2 (1-9) % Eos % (Auto) 0.2 (0-6) % Baso % (Auto) 0.3 (0-2) % Absolute Neuts (auto) 10.4 H (1.5-7.7) 10^3/ul Absolute Lymphs (auto) 3.7 (1.0-4.8) 10^3/ul Absolute Monos (auto) 1.1 H (0-0.8) 10^3/ul Absolute Eos (auto) 0 (0-0.6) 10^3/ul Absolute Basos (auto) 0.1 (0-0.2) 10^3/ul Absolute Nucleated RBC 0.01 10^3/ul Nucleated RBC % 0 INR (Anticoag Therapy) (0.89-1.11) Sodium 135 (133-145) mmol/L Potassium 3.9 (3.5-5.0) mmol/L Chloride 100 L (101-111) mmol/L Carbon Dioxide 27 (22-32) mmol/L Anion Gap 8 (2-11) mmol/L BUN 45 H (6-24) mg/dL Creatinine 1.35 H (0.67-1.17) mg/dL Est GFR ( Amer) 68.4 (>60) Est GFR (Non-Af Amer) 53.2 (>60) BUN/Creatinine Ratio 33.3 H (8-20) Glucose 114 H (70-100) mg/dL Lactic Acid (0.5-2.0) mmol/L Calcium 12.2 H (8.6-10.3) mg/dL Phosphorus 2.8 (2.5-5.0) mg/dL Magnesium 1.0 L (1.9-2.7) mg/dL Total Bilirubin 0.60 (0.2-1.0) mg/dL AST 25 (13-39) U/L ALT 34 (7-52) U/L Alkaline Phosphatase 62 (34-104) U/L Total Creatine Kinase 77 (10-223) U/L CK-MB (CK-2) Pending Troponin I 1.31 H* (<0.04) ng/mL B-Natriuretic Peptide ( - 100) pg/mL Total Protein 7.2 (6.4-8.9) g/dL Albumin 4.1 (3.2-5.2) g/dL Globulin 3.1 (2-4) g/dL Albumin/Globulin Ratio 1.3 (1-3) TSH 4.42 (0.34-5.60) mcIU/mL PTH Intact < 1.3 L (1.3-9.3) pmol/L Calcium (PTH Intact) 12.3 H (8.6-10.3) mg/dL 01/10/17 01/10/17 01/10/17 Range/Units 20:40 20:40 20:40 WBC (3.5-10.8) 10^3/ul RBC (4.0-5.4) 10^6/ul Hgb (14.0-18.0) g/dl Hct (42-52) % MCV (80-94) fL MCH (27-31) pg MCHC (31-36) g/dl RDW (10.5-15) % Plt Count (150-450) 10^3/ul MPV (7.4-10.4) um3 Neut % (Auto) (38-83) % Lymph % (Auto) (25-47) % Linn % (Auto) (1-9) % Eos % (Auto) (0-6) % Baso % (Auto) (0-2) % Absolute Neuts (auto) (1.5-7.7) 10^3/ul Absolute Lymphs (auto) (1.0-4.8) 10^3/ul Absolute Monos (auto) (0-0.8) 10^3/ul Absolute Eos (auto) (0-0.6) 10^3/ul Absolute Basos (auto) (0-0.2) 10^3/ul Absolute Nucleated RBC 10^3/ul Nucleated RBC % INR (Anticoag Therapy) 0.99 (0.89-1.11) Sodium (133-145) mmol/L Potassium (3.5-5.0) mmol/L Chloride (101-111) mmol/L Carbon Dioxide (22-32) mmol/L Anion Gap (2-11) mmol/L BUN (6-24) mg/dL Creatinine (0.67-1.17) mg/dL Est GFR ( Amer) (>60) Est GFR (Non-Af Amer) (>60) BUN/Creatinine Ratio (8-20) Glucose (70-100) mg/dL Lactic Acid 1.8 (0.5-2.0) mmol/L Calcium (8.6-10.3) mg/dL Phosphorus (2.5-5.0) mg/dL Magnesium (1.9-2.7) mg/dL Total Bilirubin (0.2-1.0) mg/dL AST (13-39) U/L ALT (7-52) U/L Alkaline Phosphatase (34-104) U/L Total Creatine Kinase (10-223) U/L CK-MB (CK-2) Troponin I (<0.04) ng/mL B-Natriuretic Peptide 75 ( - 100) pg/mL Total Protein (6.4-8.9) g/dL Albumin (3.2-5.2) g/dL Globulin (2-4) g/dL Albumin/Globulin Ratio (1-3) TSH (0.34-5.60) mcIU/mL PTH Intact (1.3-9.3) pmol/L Calcium (PTH Intact) (8.6-10.3) mg/dL Assess/Plan/Problems-Billing Assessment: - Patient Problems (1) Elevated troponin Current Visit: Yes Status: Acute Code(s): R74.8 - ABNORMAL LEVELS OF OTHER SERUM ENZYMES SNOMED Code(s): 395688532 Comment: Troponin down to 1.04 on 01/12. Discussed with Dr. Rodriguez. US legs , D-dimer both neg. Consider cardiac cath 01/14. Atorvastatin reduced to 20 mg due to LDL of 31. Short run of 2:1 heart block, could be Wenckebach. Hold chronotropic meds, consider amlodipine if systolic BP > 120 consistently. (2) Hypercalcemia Current Visit: Yes Status: Acute Code(s): E83.52 - HYPERCALCEMIA SNOMED Code(s): 86052998 Comment: Resolved, due to overus of Tums. (3) Tobacco abuse Current Visit: Yes Status: Acute Code(s): Z72.0 - TOBACCO USE SNOMED Code( s): 799121629 Comment: Pt advised to quit smoking and avoid second hand smoke. (4) Diabetes Current Visit: Yes Status: Acute Code(s): E11.9 - TYPE 2 DIABETES MELLITUS WITHOUT COMPLICATIONS SNOMED Code(s): 15102586 Comment: Metformin on hold. FS glucose 112-171 range as of 01/12. (5) HTN (hypertension) Current Visit: Yes Status: Acute Code(s): I10 - ESSENTIAL (PRIMARY) HYPERTENSION SNOMED Code(s): 08990052 Comment: Lisinopril on hold. (6) BPH (benign prostatic hyperplasia) Current Visit: Yes Status: Acute Code(s): N40.0 - BENIGN PROSTATIC HYPERPLASIA WITHOUT LOWER URINRY TRACT SYMP SNOMED Code(s): 571975139 Comment: Continue tamsulosin.
[2017-01-12] MEDS: Atorvastatin* 20 MG TAB PO SCH (17:12)
[2017-01-12] MEDS: Tamsulosin CAP* 0.4 MG PO SCH (22:03)
[2017-01-12] MEDS: Insulin GLARGINE(*) 1 UNITS UNIT SUBCUT SCH (22:06)
--- NOTE | 2017-01-13 03:47 | PN ---
Progress Note - Progress Note Date of Service: 01/13/17 Note: Nursing called reporting possible 2nd degree AV Mobitz II. Upon review of printed telemetry strip, the rhythm appears to change from a standard Mobitz I to a 2:1 block for a few seconds and then back to a more typical Mobitz I. While 2:1 blocks could be either Mobitz I or II, it is more likely this is a variable block in Mobitz I. However, to err on the side of caution we will place external pacer pads on the patient and move the generator to outside his room.
[2017-01-13 05:30] LABS: Hematocrit 39 % (42-52); Hemoglobin 13.6 g/dl (14.0-18.0); Mean Corpuscular HGB Conc 35 g/dl (31-36); Mean Corpuscular Hemoglobin 31 pg (27-31); Mean Corpuscular Volume 88 fL (80-94); Mean Platelet Volume 8 um3 (7.4-10.4); Red Blood Count 4.45 10^6/ul (4.0-5.4); Red Cell Distribution Width 14 % (10.5-15); White Blood Count 6.2 10^3/ul (3.5-10.8)
[2017-01-13 05:50] LABS: BUN/Creatinine Ratio 28.1 (8-20); Calcium 9.3 mg/dL (8.6-10.3); EGFR African American 101.4 (>60); EGFR Non-African American 78.9 (>60); Potassium 3.6 mmol/L (3.5-5.0)
[2017-01-13] MEDS: Omeprazole CAP* 20 MG PO SCH (06:11)
[2017-01-13] MEDS: Aspirin EC Low Dose* 81 MG TAB.EC PO SCH (08:03)
[2017-01-13] MEDS: Insulin LISPRO* 1 UNITS UNIT SUBCUT SCH ×4 (08:04→21:27)
[2017-01-13] MEDS: Docusate CAP* 100 MG PO SCH ×2 (08:05→21:26)
[2017-01-13] MEDS: Enoxaparin(*) 100 MG/ML SYR SUBCUT SCH ×2 (11:12→21:28)
--- NOTE | 2017-01-13 15:18 | PN ---
Subjective Date of Service: 01/13/17 Interval History: No chest pain, cough, SOB No new c/o. Objective Active Medications: Acetaminophen (Tylenol Tab*) 650 mg PO Q6H PRN PRN Reason: FEVER/PAIN Albuterol (Ventolin 2.5 Mg/3 Ml Neb.Isabella*) 2.5 mg INH Q2H PRN PRN Reason: SOB/WHEEZING Aspirin (Aspirin Ec Low Dose*) [address] [facility] Last Admin: 01/13/17 08:03 Dose: 81 mg Atorvastatin Calcium (Lipitor*) [address] [facility] Last Admin: 01/12/17 17:12 Dose: 20 mg Docusate Sodium (Colace Cap*) [address] [facility] Last Admin: 01/13/17 08:05 Dose: Not Given Enoxaparin Sodium (Lovenox(*)) [address] [facility] Stop: 01/13/17 23:30 Last Admin: 01/13/17 11:12 Dose: 100 mg Sodium Chloride (Ns 0.9% 1000 Ml*) 1,000 mls @ 100 mls/hr IV .per rate [facility] Insulin Glargine (Lantus(*)) [address] [facility] Last Admin: 01/12/17 22:06 Dose: 26 unit Insulin Human Lispro (Humalog*) [address] [facility] PRN Reason: Protocol Last Admin: 01/13/17 11:12 Dose: 6 units Morphine Sulfate (Morphine Inj (Syringe)*) 2 mg IV Q4H PRN PRN Reason: PAIN - MILD Nicotine (Nicotine Inhaler*) 10 mg INH Q2H PRN PRN Reason: CRAVING Omeprazole (Prilosec Cap*) 20 mg PO DAILY@0600 [facility] Last Admin: 01/13/17 06:11 Dose: 20 mg Ondansetron HCl (Zofran Inj*) 4 mg IV Q6H PRN PRN Reason: NAUSEA Tamsulosin HCl (Flomax Cap*) 0.[address] [facility] Last Admin: 01/12/17 22:03 Dose: Not Given Tramadol HCl (Ultram*) 50 mg PO Q6H PRN PRN Reason: PAIN Vital Signs 01/12/17 01/12/17 01/12/17 19:18 20:00 23:45 Temperature 99.0 F 97.6 F Pulse Rate 76 70 Respiratory 16 18 16 Rate Blood Pressure 127/61 123/55 (mmHg) O2 Sat by Pulse 96 92 Oximetry 01/13/17 01/13/17 01/13/17 00:00 03:18 06:55 Temperature 97.9 F Pulse Rate 66 Respiratory 18 16 Rate Blood Pressure 133/74 (mmHg) O2 Sat by Pulse 92 94 Oximetry 01/13/17 01/13/17 01/13/17 07:19 09:01 09:02 Temperature 98.0 F Pulse Rate 75 75 Respiratory 20 18 Rate Blood Pressure 126/74 (mmHg) O2 Sat by Pulse 96 98 97 Oximetry 01/13/17 11:07 Temperature 98.0 F Pulse Rate 77 Respiratory 24 Rate Blood Pressure 146/65 (mmHg) O2 Sat by Pulse 94 Oximetry Oxygen Devices in Use Now: None Appearance: Alert, in a chair. In good spirits. Looks comfortable. Eyes: No Scleral Icterus Neck: NL Appearance and Movements; NL JVP, No Thyroid Enlargement, Masses Respiratory: Symmetrical Chest Expansion and Respiratory Effort, Clear to Auscultation, Clear to Percussion Cardiovascular: NL Sounds; No Murmurs; No JVD, RRR, No Edema, - Extremities: No Edema, No Clubbing, Cyanosis, - Skin: No Rash or Ulcers, No Nodules or Sclerosis, - Neurological: Alert and Oriented x 3, NL Sensation Result Diagrams: 01/13/17 04:33 01/13/17 04:33 Additional Lab and Data: Lab Results 01/10/17 01/10/17 01/10/17 Range/Units 20:40 20:40 20:40 WBC 15.3 H (3.5-10.8) 10^3/ul RBC 4.88 (4.0-5.4) 10^6/ul Hgb 14.8 (14.0-18.0) g/dl Hct 43 (42-52) % MCV 88 (80-94) fL MCH 30 (27-31) pg MCHC 35 (31-36) g/dl RDW 15 (10.5-15) % Plt Count 270 (150-450) 10^3/ul MPV 9 (7.4-10.4) um3 Neut % (Auto) 68.3 (38-83) % Lymph % (Auto) 24.0 L (25-47) % [place] % (Auto) 7.2 (1-9) % Eos % (Auto) 0.2 (0-6) % Baso % (Auto) 0.3 (0-2) % Absolute Neuts (auto) 10.4 H (1.5-7.7) 10^3/ul Absolute Lymphs (auto) 3.7 (1.0-4.8) 10^3/ul Absolute Monos (auto) 1.1 H (0-0.8) 10^3/ul Absolute Eos (auto) 0 (0-0.6) 10^3/ul Absolute Basos (auto) 0.1 (0-0.2) 10^3/ul Absolute Nucleated RBC 0.01 10^3/ul Nucleated RBC % 0 INR (Anticoag Therapy) (0.89-1.11) Sodium 135 (133-145) mmol/L Potassium 3.9 (3.5-5.0) mmol/L Chloride 100 L (101-111) mmol/L Carbon Dioxide 27 (22-32) mmol/L Anion Gap 8 (2-11) mmol/L BUN 45 H (6-24) mg/dL Creatinine 1.35 H (0.67-1.17) mg/dL Est GFR ( Amer) 68.4 (>60) Est GFR (Non-Af Amer) 53.2 (>60) BUN/Creatinine Ratio 33.3 H (8-20) Glucose 114 H (70-100) mg/dL Lactic Acid (0.5-2.0) mmol/L Calcium 12.2 H (8.6-10.3) mg/dL Phosphorus 2.8 (2.5-5.0) mg/dL Magnesium 1.0 L (1.9-2.7) mg/dL Total Bilirubin 0.60 (0.2-1.0) mg/dL AST 25 (13-39) U/L ALT 34 (7-52) U/L Alkaline Phosphatase 62 (34-104) U/L Total Creatine Kinase 77 (10-223) U/L CK-MB (CK-2) Pending Troponin I 1.31 H* (<0.04) ng/mL B-Natriuretic Peptide ( - 100) pg/mL Total Protein 7.2 (6.4-8.9) g/dL Albumin 4.1 (3.2-5.2) g/dL Globulin 3.1 (2-4) g/dL Albumin/Globulin Ratio 1.3 (1-3) TSH 4.42 (0.34-5.60) mcIU/mL PTH Intact < 1.3 L (1.3-9.3) pmol/L Calcium (PTH Intact) 12.3 H (8.6-10.3) mg/dL 01/10/17 01/10/17 01/10/17 Range/Units 20:40 20:40 20:40 WBC (3.5-10.8) 10^3/ul RBC (4.0-5.4) 10^6/ul Hgb (14.0-18.0) g/dl Hct (42-52) % MCV (80-94) fL MCH (27-31) pg MCHC (31-36) g/dl RDW (10.5-15) % Plt Count (150-450) 10^3/ul MPV (7.4-10.4) um3 Neut % (Auto) (38-83) % Lymph % (Auto) (25-47) % [place] % (Auto) (1-9) % Eos % (Auto) (0-6) % Baso % (Auto) (0-2) % Absolute Neuts (auto) (1.5-7.7) 10^3/ul Absolute Lymphs (auto) (1.0-4.8) 10^3/ul Absolute Monos (auto) (0-0.8) 10^3/ul Absolute Eos (auto) (0-0.6) 10^3/ul Absolute Basos (auto) (0-0.2) 10^3/ul Absolute Nucleated RBC 10^3/ul Nucleated RBC % INR (Anticoag Therapy) 0.99 (0.89-1.11) Sodium (133-145) mmol/L Potassium (3.5-5.0) mmol/L Chloride (101-111) mmol/L Carbon Dioxide (22-32) mmol/L Anion Gap (2-11) mmol/L BUN (6-24) mg/dL Creatinine (0.67-1.17) mg/dL Est GFR ( Amer) (>60) Est GFR (Non-Af Amer) (>60) BUN/Creatinine Ratio (8-20) Glucose (70-100) mg/dL Lactic Acid 1.8 (0.5-2.0) mmol/L Calcium (8.6-10.3) mg/dL Phosphorus (2.5-5.0) mg/dL Magnesium (1.9-2.7) mg/dL Total Bilirubin (0.2-1.0) mg/dL AST (13-39) U/L ALT (7-52) U/L Alkaline Phosphatase (34-104) U/L Total Creatine Kinase (10-223) U/L CK-MB (CK-2) Troponin I (<0.04) ng/mL B-Natriuretic Peptide 75 ( - 100) pg/mL Total Protein (6.4-8.9) g/dL Albumin (3.2-5.2) g/dL Globulin (2-4) g/dL Albumin/Globulin Ratio (1-3) TSH (0.34-5.60) mcIU/mL PTH Intact (1.3-9.3) pmol/L Calcium (PTH Intact) (8.6-10.3) mg/dL Assess/Plan/Problems-Billing Assessment: - Patient Problems (1) Elevated troponin Current Visit: Yes Status: Acute Code(s): R74.8 - ABNORMAL LEVELS OF OTHER SERUM ENZYMES SNOMED Code(s): 553481303 Comment: Troponin down to 1.04 on 01/12. Discussed with Dr. Rodriguez. US legs , D-dimer both neg. Cardiac cath 01/14. Atorvastatin reduced to 20 mg due to LDL of 31. Occ short periods hear block with pauses up to 2.2 sec (?3.6 sec) while sleeping. OVernight oximetry showed periods of desat under 89%. Hold chronotropic meds, consider amlodipine if systolic BP > 120 consistently. Consider outpt Holter and sleep lab eval. (2) Hypercalcemia Current Visit: Yes Status: Acute Code(s): E83.52 - HYPERCALCEMIA SNOMED Code(s): 94193365 Comment: Resolved, due to overus of Tums. (3) Tobacco abuse Current Visit: Yes Status: Acute Code(s): Z72.0 - TOBACCO USE SNOMED Code( s): 776216485 Comment: Pt advised to quit smoking and avoid second hand smoke. (4) Diabetes Current Visit: Yes Status: Acute Code(s): E11.9 - TYPE 2 DIABETES MELLITUS WITHOUT COMPLICATIONS SNOMED Code(s): 68862168 Comment: Metformin on hold. FS glucose 115-203 range as of 01/13. (5) HTN (hypertension) Current Visit: Yes Status: Acute Code(s): I10 - ESSENTIAL (PRIMARY) HYPERTENSION SNOMED Code(s): 54403667 Comment: Lisinopril on hold. (6) BPH (benign prostatic hyperplasia) Current Visit: Yes Status: Acute Code(s): N40.0 - BENIGN PROSTATIC HYPERPLASIA WITHOUT LOWER URINRY TRACT SYMP SNOMED Code(s): 972693868 Comment: Continue tamsulosin.
[2017-01-13] MEDS: Atorvastatin* 20 MG TAB PO SCH (16:07)
[2017-01-13] MEDS: Tamsulosin CAP* 0.4 MG PO SCH (21:26)
[2017-01-13] MEDS: Insulin GLARGINE(*) 1 UNITS UNIT SUBCUT SCH (21:27)
[2017-01-14] MEDS ORDERED: NS 0.9% 1000 ML* 1,000 ML IV SCH ×2 (06:00→11:00)
[2017-01-14] MEDS: Omeprazole CAP* 20 MG PO SCH (06:17)
[2017-01-14] MEDS: Insulin LISPRO* 1 UNITS UNIT SUBCUT SCH ×4 (07:57→21:58)
[2017-01-14] MEDS ORDERED: Aspirin Low Dose CHEW TAB* 81 MG ONE (08:42)
[2017-01-14] MEDS: Aspirin EC Low Dose* 81 MG TAB.EC PO SCH (08:57)
[2017-01-14] MEDS ORDERED: nitroGLYCERIN DRIP* 250 ML ONE (09:28)
[2017-01-14] MEDS ORDERED: Midazolam* 1 MG/ML 5 ML VIAL (5 MG) ONE (09:28)
[2017-01-14] MEDS ORDERED: fentaNYL* 50 MCG/ML 2 ML VIAL (100 MCG VIAL) ONE ×2 (09:28→09:50)
[2017-01-14] MEDS ORDERED: VERAPAMIL 2.5 MG/ML 4 ML VIAL ONE (09:28)
[2017-01-14] MEDS ORDERED: Heparin(*) 1000 UNIT/ML 10 ML VIAL CATH LAB IV ONE (09:28)
[2017-01-14] MEDS ORDERED: Iohexol 350 (CONTRAST) 200 ML MDV IV ONE (09:29)
[2017-01-14] MEDS ORDERED: Heparin 2 UNITS/ML IVPREMIX* 2,000 ML IV ONE (09:29)
[2017-01-14] MEDS ORDERED: Lidocaine 1% INJ* 10 MG/ML 30 ML SDV ONE (09:29)
[2017-01-14] MEDS ORDERED: Ticagrelor* 90 MG TAB PO ONE (10:15)
[2017-01-14] MEDS ORDERED: Nitroglycerin TAB 0.4 MG* 0.4 MG TAB SL PRN (10:54)
[2017-01-14] MEDS: Docusate CAP* 100 MG PO SCH ×2 (14:34→21:56)
--- NOTE | 2017-01-14 15:01 | PN ---
Subjective Date of Service: 01/14/17 Interval History: No c/o. Objective Active Medications: Acetaminophen (Tylenol Tab*) 650 mg PO Q6H PRN PRN Reason: FEVER/PAIN Albuterol (Ventolin 2.5 Mg/3 Ml Neb.Isabella*) 2.5 mg INH Q2H PRN PRN Reason: SOB/WHEEZING Aspirin (Aspirin Ec Low Dose*) 81 mg PO DAILY [facility] Last Admin: 01/14/17 08:57 Dose: 81 mg Atorvastatin Calcium (Lipitor*) 20 mg PO 1700 [facility] Last Admin: 01/13/17 16:07 Dose: 20 mg Docusate Sodium (Colace Cap*) 200 mg PO BID [facility] Last Admin: 01/14/17 14:34 Dose: Not Given Sodium Chloride (Ns 0.9% 1000 Ml*) 1,000 mls @ 100 mls/hr IV .per rate [facility] Stop: 01/14/17 15:00 Insulin Glargine (Lantus(*)) 26 units SUBCUT 2100 [facility] Last Admin: 01/13/17 21:27 Dose: 26 unit Insulin Human Lispro (Humalog*) 0 units SUBCUT ACHS [facility] PRN Reason: Protocol Last Admin: 01/14/17 14:34 Dose: Not Given Morphine Sulfate (Morphine Inj (Syringe)*) 2 mg IV Q4H PRN PRN Reason: PAIN - MILD Nicotine (Nicotine Inhaler*) 10 mg INH Q2H PRN PRN Reason: CRAVING Nitroglycerin (Nitroglycerin Tab 0.4 Mg*) 0.4 mg SL Q5M PRN PRN Reason: ANGINA Omeprazole (Prilosec Cap*) 20 mg PO DAILY@0600 [facility] Last Admin: 01/14/17 06:17 Dose: Not Given Ondansetron HCl (Zofran Inj*) 4 mg IV Q6H PRN PRN Reason: NAUSEA Tamsulosin HCl (Flomax Cap*) 0.4 mg PO BEDTIME [facility] Last Admin: 01/13/17 21:26 Dose: 0.4 mg Ticagrelor (Brilinta*) 90 mg PO BID [facility] Tramadol HCl (Ultram*) 50 mg PO Q6H PRN PRN Reason: PAIN Vital Signs 01/13/17 01/13/17 01/13/17 15:45 19:32 20:00 Temperature 98.5 F Pulse Rate 79 82 Respiratory 20 22 20 Rate Blood Pressure 130/66 150/74 (mmHg) O2 Sat by Pulse 95 94 Oximetry 01/13/17 01/14/17 01/14/17 23:13 03:52 08:00 Temperature 98.1 F 97.9 F Pulse Rate 74 69 Respiratory 20 16 18 Rate Blood Pressure 122/54 127/53 (mmHg) O2 Sat by Pulse 92 94 Oximetry 01/14/17 01/14/17 01/14/17 09:00 09:05 09:10 Temperature Pulse Rate 79 77 73 Respiratory 16 19 17 Rate Blood Pressure 138/62 126/62 110/52 (mmHg) O2 Sat by Pulse 97 96 95 Oximetry 01/14/17 01/14/17 01/14/17 09:15 09:20 09:25 Temperature Pulse Rate 72 74 82 Respiratory 19 18 16 Rate Blood Pressure 128/52 139/62 148/63 (mmHg) O2 Sat by Pulse 94 94 96 Oximetry 01/14/17 01/14/17 01/14/17 10:49 11:00 11:17 Temperature Pulse Rate 77 73 72 Respiratory 15 18 17 Rate Blood Pressure 137/63 (mmHg) O2 Sat by Pulse 96 93 95 Oximetry 01/14/17 01/14/17 01/14/17 11:30 12:00 12:30 Temperature Pulse Rate 75 80 86 Respiratory 17 18 21 Rate Blood Pressure 120/61 149/89 161/88 (mmHg) O2 Sat by Pulse 97 96 97 Oximetry 01/14/17 01/14/17 01/14/17 13:00 13:30 13:53 Temperature 97.1 F Pulse Rate 87 81 81 Respiratory 18 16 22 Rate Blood Pressure 136/73 128/57 154/61 (mmHg) O2 Sat by Pulse 98 98 97 Oximetry 01/14/17 01/14/17 14:00 14:15 Temperature Pulse Rate 80 78 Respiratory 17 17 Rate Blood Pressure 131/73 132/68 (mmHg) O2 Sat by Pulse 96 96 Oximetry Oxygen Devices in Use Now: None Appearance: Alert, partly up in bed. In good spirits. Looks comfortable. Eyes: No Scleral Icterus Neck: NL Appearance and Movements; NL JVP, No Thyroid Enlargement, Masses Respiratory: Symmetrical Chest Expansion and Respiratory Effort, Clear to Auscultation, Clear to Percussion Cardiovascular: NL Sounds; No Murmurs; No JVD, RRR, No Edema, - Extremities: No Edema, No Clubbing, Cyanosis, - Skin: No Rash or Ulcers, No Nodules or Sclerosis, - Neurological: Alert and Oriented x 3, NL Sensation Result Diagrams: 01/13/17 04:33 01/13/17 04:33 Additional Lab and Data: Lab Results 01/10/17 01/10/17 01/10/17 Range/Units 20:40 20:40 20:40 WBC 15.3 H (3.5-10.8) 10^3/ul RBC 4.88 (4.0-5.4) 10^6/ul Hgb 14.8 (14.0-18.0) g/dl Hct 43 (42-52) % MCV 88 (80-94) fL MCH 30 (27-31) pg MCHC 35 (31-36) g/dl RDW 15 (10.5-15) % Plt Count 270 (150-450) 10^3/ul MPV 9 (7.4-10.4) um3 Neut % (Auto) 68.3 (38-83) % Lymph % (Auto) 24.0 L (25-47) % Knox % (Auto) 7.2 (1-9) % Eos % (Auto) 0.2 (0-6) % Baso % (Auto) 0.3 (0-2) % Absolute Neuts (auto) 10.4 H (1.5-7.7) 10^3/ul Absolute Lymphs (auto) 3.7 (1.0-4.8) 10^3/ul Absolute Monos (auto) 1.1 H (0-0.8) 10^3/ul Absolute Eos (auto) 0 (0-0.6) 10^3/ul Absolute Basos (auto) 0.1 (0-0.2) 10^3/ul Absolute Nucleated RBC 0.01 10^3/ul Nucleated RBC % 0 INR (Anticoag Therapy) (0.89-1.11) Sodium 135 (133-145) mmol/L Potassium 3.9 (3.5-5.0) mmol/L Chloride 100 L (101-111) mmol/L Carbon Dioxide 27 (22-32) mmol/L Anion Gap 8 (2-11) mmol/L BUN 45 H (6-24) mg/dL Creatinine 1.35 H (0.67-1.17) mg/dL Est GFR ( Amer) 68.4 (>60) Est GFR (Non-Af Amer) 53.2 (>60) BUN/Creatinine Ratio 33.3 H (8-20) Glucose 114 H (70-100) mg/dL Lactic Acid (0.5-2.0) mmol/L Calcium 12.2 H (8.6-10.3) mg/dL Phosphorus 2.8 (2.5-5.0) mg/dL Magnesium 1.0 L (1.9-2.7) mg/dL Total Bilirubin 0.60 (0.2-1.0) mg/dL AST 25 (13-39) U/L ALT 34 (7-52) U/L Alkaline Phosphatase 62 (34-104) U/L Total Creatine Kinase 77 (10-223) U/L CK-MB (CK-2) Pending Troponin I 1.31 H* (<0.04) ng/mL B-Natriuretic Peptide ( - 100) pg/mL Total Protein 7.2 (6.4-8.9) g/dL Albumin 4.1 (3.2-5.2) g/dL Globulin 3.1 (2-4) g/dL Albumin/Globulin Ratio 1.3 (1-3) TSH 4.42 (0.34-5.60) mcIU/mL PTH Intact < 1.3 L (1.3-9.3) pmol/L Calcium (PTH Intact) 12.3 H (8.6-10.3) mg/dL 01/10/17 01/10/17 01/10/17 Range/Units 20:40 20:40 20:40 WBC (3.5-10.8) 10^3/ul RBC (4.0-5.4) 10^6/ul Hgb (14.0-18.0) g/dl Hct (42-52) % MCV (80-94) fL MCH (27-31) pg MCHC (31-36) g/dl RDW (10.5-15) % Plt Count (150-450) 10^3/ul MPV (7.4-10.4) um3 Neut % (Auto) (38-83) % Lymph % (Auto) (25-47) % Knox % (Auto) (1-9) % Eos % (Auto) (0-6) % Baso % (Auto) (0-2) % Absolute Neuts (auto) (1.5-7.7) 10^3/ul Absolute Lymphs (auto) (1.0-4.8) 10^3/ul Absolute Monos (auto) (0-0.8) 10^3/ul Absolute Eos (auto) (0-0.6) 10^3/ul Absolute Basos (auto) (0-0.2) 10^3/ul Absolute Nucleated RBC 10^3/ul Nucleated RBC % INR (Anticoag Therapy) 0.99 (0.89-1.11) Sodium (133-145) mmol/L Potassium (3.5-5.0) mmol/L Chloride (101-111) mmol/L Carbon Dioxide (22-32) mmol/L Anion Gap (2-11) mmol/L BUN (6-24) mg/dL Creatinine (0.67-1.17) mg/dL Est GFR ( Amer) (>60) Est GFR (Non-Af Amer) (>60) BUN/Creatinine Ratio (8-20) Glucose (70-100) mg/dL Lactic Acid 1.8 (0.5-2.0) mmol/L Calcium (8.6-10.3) mg/dL Phosphorus (2.5-5.0) mg/dL Magnesium (1.9-2.7) mg/dL Total Bilirubin (0.2-1.0) mg/dL AST (13-39) U/L ALT (7-52) U/L Alkaline Phosphatase (34-104) U/L Total Creatine Kinase (10-223) U/L CK-MB (CK-2) Troponin I (<0.04) ng/mL B-Natriuretic Peptide 75 ( - 100) pg/mL Total Protein (6.4-8.9) g/dL Albumin (3.2-5.2) g/dL Globulin (2-4) g/dL Albumin/Globulin Ratio (1-3) TSH (0.34-5.60) mcIU/mL PTH Intact (1.3-9.3) pmol/L Calcium (PTH Intact) (8.6-10.3) mg/dL Assess/Plan/Problems-Billing Assessment: - Patient Problems (1) Elevated troponin Current Visit: Yes Status: Acute Code(s): R74.8 - ABNORMAL LEVELS OF OTHER SERUM ENZYMES SNOMED Code(s): 470056153 Comment: Troponin down to 1.04 on 01/12. Discussed with Dr. Rodriguez. US legs , D-dimer both neg. Cardiac cath 01/14, one stent inserted. Continue ASA, ticagrelor. Atorvastatin reduced to 20 mg due to LDL of 31. Occ short periods hear block with pauses up to 2.2 sec (?3.6 sec) while sleeping. OVernight oximetry showed periods of desat under 89%. Hold chronotropic meds, consider amlodipine if systolic BP > 120 consistently. Consider outpt Holter and sleep lab eval. (2) Hypercalcemia Current Visit: Yes Status: Acute Code(s): E83.52 - HYPERCALCEMIA SNOMED Code(s): 45303031 Comment: Resolved, due to overus of Tums. (3) Tobacco abuse Current Visit: Yes Status: Acute Code(s): Z72.0 - TOBACCO USE SNOMED Code( s): 627605417 Comment: Pt advised to quit smoking and avoid second hand smoke. (4) Diabetes Current Visit: Yes Status: Acute Code(s): E11.9 - TYPE 2 DIABETES MELLITUS WITHOUT COMPLICATIONS SNOMED Code(s): 74637122 Comment: Metformin on hold. FS glucose 115-203 range as of 01/14. (5) HTN (hypertension) Current Visit: Yes Status: Acute Code(s): I10 - ESSENTIAL (PRIMARY) HYPERTENSION SNOMED Code(s): 64389038 Comment: Lisinopril on hold. (6) BPH (benign prostatic hyperplasia) Current Visit: Yes Status: Acute Code(s): N40.0 - BENIGN PROSTATIC HYPERPLASIA WITHOUT LOWER URINRY TRACT SYMP SNOMED Code(s): 519196331 Comment: Continue tamsulosin.
[2017-01-14] MEDS: Atorvastatin* 20 MG TAB PO SCH (17:14)
[2017-01-14] MEDS: Ticagrelor* 90 MG TAB PO SCH (21:56)
[2017-01-14] MEDS: Tamsulosin CAP* 0.4 MG PO SCH (21:56)
[2017-01-14] MEDS: Insulin GLARGINE(*) 1 UNITS UNIT SUBCUT SCH (21:57)
[2017-01-15] MEDS: Omeprazole CAP* 20 MG PO SCH (05:35)
[2017-01-15 06:03] LABS: BUN/Creatinine Ratio 24.4 (8-20); EGFR African American 121.6 (>60); EGFR Non-African American 94.6 (>60); Potassium 3.7 mmol/L (3.5-5.0)
--- NOTE | 2017-01-15 08:05 | CATH ---
AMENDED REPORT NOW INCLUDES DATE OF PROCEDURE PER DR. LUCAS'S OFFICE CC: Dr. Schuler * STENT REPORT: DATE OF PROCEDURE: 01/14/17 - ROOM #ICU-02 PRIMARY CARE PROVIDER: Dr. Schuler. PROCEDURES: Right radial artery access, bilateral selective coronary cineangiography, left heart catheterization, left stent placement circumflex ramus branch 2.75 x 20 Synergy drug-eluting stent. HISTORY: A 66-year-old male with troponin-positive ACS, ELVIN score 4, referred for coronary angiography. PROCEDURE ACCESS: Right radial artery sheath, 6-F Slender. MEDICATIONS: 1. Subcu lidocaine. 2. IV Versed. 3. IV Fentanyl. 4. Heparin 3000 units. 5. Verapamil 3 mg. 6. Nitroglycerin 300 mcg IA. 7. Additional heparin 5000 units. 8. Brilinta 180 mg p.o. loading dose. DIAGNOSTIC CATHETERS: 5-FL 3.5, 5-FR4 guiding catheter, 6-F VL 3.5 140 BMW used to deploy 2.75 x 20 Synergy drug-eluting stent, mid ramus at 12 atmospheres and 20 seconds, post dilated with a 2.75 x 20 noncompliant balloon 16 atmospheres 30 seconds. Left-sided pressures were recorded with the diagnostic catheter. HEMODYNAMICS: Initial BP 153/78, LV 120/13. No aortic valve gradient on pull back. ANGIOGRAPHY: Left main: The left main is relatively long, has no stenosis. LAD: The LAD is large, has a proximal 40% to 50% stenosis before a 90 degree bend followed by a second 90 degree bend. The LAD then supplies a moderate diagonal before the LAD as another segment of tortuosity, distally the LAD and at the apex. Circumflex: The circumflex is moderate. There is a moderate ramus branch, which has an 80% to 90% mid stenosis with distal ELVIN-2 flow. The AV groove circumflex supplies a small posterolateral branch. RCA: The RCA is dominant, large, has a proximal 40% stenosis. The PDA is moderate with an ostial less than 50% stenosis. Distally, there is a large posterolateral and two smaller posterolaterals. The RCA has no significant stenosis. After ramus circumflex stent deployment, post dilatation, there is a ELVIN-3 flow , no residual stenosis, no dissection. CONCLUSION: 1. Single vessel disease ramus, with excellent angiographic results with drug- eluting stent placement, nonobstructive disease in the LAD and RCA. 2. Normal left-sided hemodynamics. 3. LV gram not performed. 4. Successful right radial artery access. [id number]/[facility] #: [id number] MTDRui
[2017-01-15] MEDS ORDERED: Mouth Piece, Nicotine* 1 EACH CARTRIDGE ONE (08:13)
[2017-01-15] MEDS: Ticagrelor* 90 MG TAB PO SCH (08:14)
[2017-01-15] MEDS: Aspirin EC Low Dose* 81 MG TAB.EC PO SCH (08:14)
[2017-01-15] MEDS: Docusate CAP* 100 MG PO SCH (08:15)
--- NOTE | 2017-01-15 08:58 | PN ---
Progress Note - Progress Note Date of Service: 01/15/17 Note: Time spent on discharge 45 minutes.
[2017-01-15] MEDS: Insulin LISPRO* 1 UNITS UNIT SUBCUT SCH (09:20)
[2017-01-15 09:34] VITALS: BP 141/57
--- NOTE | 2017-01-15 09:46 | PN ---
Progress Note - Progress Note Date of Service: 01/15/17 Note: Additional diagnosis: Non-ST elevation CT.
--- NOTE | 2017-01-16 05:24 | DS ---
CC: Dr. Schuler; Dr. Matos* DISCHARGE SUMMARY: DATE OF ADMISSION: 01/10/17 DATE OF DISCHARGE: 01/15/17 HOSPITAL COURSE: This 66-year-old man presented because of hypercalcemia. He had chest pain with several days to a week before admission. He was taking very large amounts of Tums to help with the chest pain. He saw his physician, Dr. Schuler, and labs were done. He was then called at home and told to go to the emergency room because his calcium is 15. His calcium was 12 when he got to the emergency room. It came down to normal shortly after that. However, his troponin on arrival in the emergency room was 1.31. It peaked at 1.72. It fell to 1.04 on 01/12/17. There was some variation. I think it may simply have been steadily falling since his initial episode of chest pain, although the timing of his coronary event is somewhat uncertain. The patient had echocardiogram on 01/11/17, which showed ejection fraction of 60 % to 65%. The study was technically limited due to body habitus. No wall motion abnormalities were noted. There was abnormal left ventricular diastolic function. Patient underwent cardiac catheterization on 01/14/17 and a single stent was inserted by Dr. Matos. He restarted on ticagrelor. His metformin was held. He was going to restart his metformin on 01/17/17. The patient has been only checking his fingerstick glucose at home once or twice a week. I told him to check it at least twice a day. He required insulin in the hospital, but I note his metformin was held. The patient was encouraged to stop smoking, also to stick to a better diet and lose some weight. FINAL DIAGNOSES: 1. Acute coronary syndrome. 2. Hypercalcemia due to Tums. 3. Tobacco abuse. 4. Diabetes. 5. Hypertension. 6. Benign prostatic hyperplasia. DISCHARGE MEDICATIONS: 1. Ticagrelor 90 mg b.i.d. 2. Aspirin 81 mg daily. 3. Metformin 1000 mg b.i.d. to start on 01/17/17. 4. Icosapent ethyl 2 g b.i.d. 5. Atorvastatin 40 mg h.s. 6. Nitroglycerin 0.4 mg sublingual every 5 minutes p.r.n. 7. Amlodipine 5 mg daily. 8. Multivitamin with mineral daily. 9. Albuterol 2 puffs p.r.n. 10. Tamsulosin 0.4 mg daily. [id number]/[facility] #: [id number] [facility]
== END 2017-01-15 11:10 | disposition home or self-care (01) | DRG 174 ==
LOC: ED 17:38 → MEDTELE 22:22 → ICU 01-14 13:47
PROVIDERS: ADMIT Hospitalist; ATTEND Internal Medicine
PROC: 4A023N7 Measurement of Cardiac Sampling and Pressure, Left Heart, Percutaneous Approach (ICD-10-PCS; principal; 2017-01-10)
PROC: B2151ZZ Fluoroscopy of Left Heart using Low Osmolar Contrast (ICD-10-PCS; 2017-01-10)
PROC: B2111ZZ Fluoroscopy of Multiple Coronary Arteries using Low Osmolar Contrast (ICD-10-PCS; 2017-01-10)
PROC: 027034Z Dilation of Coronary Artery, One Artery with Drug-eluting Intraluminal Device, Percutaneous Approach (ICD-10-PCS; 2017-01-10)
DX: I21.4 Non-ST elevation (NSTEMI) myocardial infarction (principal); E83.52 Hypercalcemia; I10 Essential (primary) hypertension; E11.9 Type 2 diabetes mellitus without complications; E78.5 Hyperlipidemia, unspecified; M19.90 Unspecified osteoarthritis, unspecified site; F17.210 Nicotine dependence, cigarettes, uncomplicated; E66.9 Obesity, unspecified; N40.0 Benign prostatic hyperplasia without lower urinary tract symptoms; I25.10 Atherosclerotic heart disease of native coronary artery without angina pectoris; G89.29 Other chronic pain; M25.559 Pain in unspecified hip; T47.1X5A Adverse effect of other antacids and anti-gastric-secretion drugs, initial encounter; Z79.82 Long term (current) use of aspirin; Z79.84 Long term (current) use of oral hypoglycemic drugs; Z87.442 Personal history of urinary calculi; Z82.49 Family history of ischemic heart disease and other diseases of the circulatory system; Z83.3 Family history of diabetes mellitus; Z68.39 Body mass index [BMI] 39.0-39.9, adult
CPT/HCPCS: 36415; 71010; 80048; 80053; 80061; 82550; 82553; 83036; 83605; 83615; 83735; 83880; 83970; 84100; 84443; 84484; 85025; 85027; 85379; 85610; 85730; 93005; 93306; 93454; 93970; 94760; 94762; 96360; 99284; A9270-GY; C1725; C1769; C1876; C1887; C8929; C9600-RI; J1644; J1650; J2001; J2250; J3010

== ENCOUNTER 2018-04-30 13:21 | Emergency (ER) | payer BC ==
[2018-04-30 13:38] VITALS: BP 154/89
--- NOTE | 2018-04-30 13:39 | ED ---
HPI Chest Pain - HPI Summary HPI Summary: patient presented with right sided chest pain beginning last night that has persisted. pain worse in the right arm with movement which radiates from his shoulder - History of Current Complaint Time Seen by Provider: 04/30/18 13:23 Hx Obtained From: Patient Onset/Duration: Started Hours Ago Timing: Constant Initial Severity: Moderate Current Severity: Moderate Chest Pain Location: Right Anterior Chest Pain Radiates: Yes Chest Pain Radiates To:: Arm - right arm Character: Dull/Aching Aggravating Factor(s): Movement Alleviating Factor(s): Nothing Associated Signs and Symptoms: Positive: Negative - Risk Factors Pulmonary Embolism Risk Factors: Negative TAD Risk Factors: Negative AMI/ACS Risk Factors: Myocardial Infarction - Additional Pertinent History Primary Care Physician: FRAN - Allergy/Home Medications Allergies/Adverse Reactions: Allergies Allergy/AdvReac Type Severity Reaction Status Date / Time No Known Allergies Allergy Verified 04/30/18 13:38 Home Medications: Home Medications Clopidogrel TAB* [Plavix TAB*] 1 tab PO DAILY 04/30/18 [History Confirmed ] Glucosam/Chondr/Collagn/Hyalur [Glucosamine & Chondroitin Cap] 1 tab PO BID 05/08 [History Confirmed 04/30/18] Lavaza 2 cap PO BID 04/30/18 [History Confirmed 04/30/18] PMH/Surg Hx/FS Hx/Imm Hx Previously Healthy: Yes Endocrine/Hematology History: Reports: Hx Diabetes - type II Cardiovascular History: Reports: Hx Coronary Artery Disease, Hx Hypertension - PT. 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 [place]ST[place], RIGHT LITHOTRIPSY, STENT INDERTION 09/2016 Hx Anesthesia Reactions: No - Family History Known Family History: Negative: Cardiac Disease, Hypertension, Diabetes - Social History Alcohol Use: None Hx Substance Use: No Substance Use Type: Reports: None Substance Use Comment - Amount & Last Used: FOR CHRONIC HIP PAIN, TAKES IN AM AND PM Hx Tobacco Use: Yes Smoking Status (MU): Heavy Every Day Tobacco Smoker Type: Cigarettes Amount Used/How Often: 1 PPD FOR 25 YRS Length of Time of Smoking/Using Tobacco: 25 YRS Have You Smoked in the Last Year: Yes Review of Systems Constitutional: Negative Eyes: Negative ENT: Negative Cardiovascular: Negative Respiratory: Negative Gastrointestinal: Negative Genitourinary: Negative Positive: Arthralgia - pain in the right shoulder Skin: Negative Neurological: Negative All Other Systems Reviewed And Are Negative: Yes Physical Exam Triage Information Reviewed: Yes Vital Signs Reviewed: Yes Appearance: Positive: Ill-Appearing, Obese Skin: Positive: Warm, Dry Head/Face: Positive: Normal Head/Face Inspection Eyes: Positive: Normal ENT: Positive: Normal ENT inspection Neck: Positive: Supple Respiratory/Lung Sounds: Positive: Wheezes - bilateral expiratory and inspiratory wheezing Cardiovascular: Positive: Normal Abdomen Description: Positive: Nontender Bowel Sounds: Positive: Present Musculoskeletal: Positive: Other - pain on abduction of the right shoulder, with minimal ability to abduct the shoulder , pain to the touch at the rotator cuff and biceps tendon Chest Pain Course/Dx - Diagnoses Provider Diagnoses: Rotator cuff dysfunction Discharge - Sign-Out/Discharge Documenting (check all that apply): Patient Departure All imaging exams completed and their final reports reviewed: Yes - Discharge Plan Condition: Good Disposition: HOME Patient Education Materials: Tendinitis (ED) Referrals: Neftaly Schuler MD [Primary Care Provider] - Juan Elias MD [Medical Doctor] - Additional Instructions: physical therapy - Billing Disposition and Condition Condition: GOOD Disposition: Home
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
--- NOTE | 2018-04-30 14:13 | RAD ---
HISTORY: right shoulder pain COMPARISONS: None VIEWS: 4 , Frontal internal rotation, external rotation, outlet, and axillary views of the right shoulder FINDINGS: BONE DENSITY: Normal. BONES: There is no displaced fracture. JOINTS: There is advanced osteoarthritis of the glenohumeral articulation. ALIGNMENT: There is no dislocation. SOFT TISSUES: Unremarkable. OTHER FINDINGS: None. IMPRESSION: OSTEOARTHRITIS. NO ACUTE OSSEOUS INJURY. IF SYMPTOMS PERSIST, RECOMMEND REPEAT IMAGING.
== END 2018-04-30 14:47 | disposition home or self-care (01) ==
LOC: UCEAST 13:21
DX: M75.101 Unspecified rotator cuff tear or rupture of right shoulder, not specified as traumatic (principal); M19.011 Primary osteoarthritis, right shoulder; R07.89 Other chest pain; E11.9 Type 2 diabetes mellitus without complications; Z79.84 Long term (current) use of oral hypoglycemic drugs; I25.10 Atherosclerotic heart disease of native coronary artery without angina pectoris; I10 Essential (primary) hypertension; Z79.02 Long term (current) use of antithrombotics/antiplatelets; F17.210 Nicotine dependence, cigarettes, uncomplicated
CPT/HCPCS: 71046; 93005; 99211; G0463